=== PATIENT | male | born 1950 | race Caucasian/White ===

== ENCOUNTER 2024-02-13 14:32 | Outpatient (AMB) | payer MEDICARE, SELFPAY ==
--- NOTE | 2024-02-13 14:37 | HO.NEPHOV_ITS ---
Vital Signs 02/13/24 14:42 Height 5 ft 8 in Weight 213 lb 8 oz BMI 32.5 BP 104/70 Blood Pressure Location Rt brachial Position Sitting Pulse 92 Pulse Source Pulse Oximeter Pulse Oximetry (%) 97 Oxygen Delivery Method Room Air Intake Visit Reasons: Continuing care- CKD CON pt has labs Director Radiation Oncology Required: No Accompanied by: Self / Same As Patient Allergies No Known Allergies Allergy (Verified 02/13/24 14:44) Medication List - Last Reconciled 02/13/24 by Amari Sargent MD amlodipine 5 mg PO DAILY ascorbic acid (vitamin C) 1 g PO DAILY aspirin (Adult Low Dose Aspirin) 81 mg PO DAILY atorvastatin 10 mg PO DAILY cholecalciferol (vitamin D3) 25 mcg PO DAILY escitalopram oxalate 10 mg PO DAILY lansoprazole 30 mg PO DAILY PRN losartan 50 mg PO DAILY metoprolol succinate ER 50 mg PO DAILY multivitamin 1 tab PO DAILY rosuvastatin 5 mg PO DAILY vitamin B complex 1 tab PO DAILY HPI Comments Details: Aneudy is a pleasant 68-year-old man with a history of longstanding hypertension and CKD. He is here for annual follow-up. No new complaints today. FORMERLY [facility], 1928–1983 Surgical History (Updated 02/13/24 @ 14:42 by Blanca Richards MA) Hx of cholecystectomy Family History Mother Hypertension Kidney disease Social History (Updated 02/13/24 @ 14:42 by Blanca Richards MA) Alcohol intake: current Patient Tobacco Use Status: Former Tobacco user Physical Exam Vital Signs: Last Vital Signs Pulse 92 02/13/24 14:42 BP 104/70 02/13/24 14:42 Pulse Ox 97 02/13/24 14:42 Oxygen Delivery Method Room Air 02/13/24 14:42 BMI result Body Mass Index 32.5 Const General: comfortable; No acute distress Orientation/consciousness: patient oriented x3 Eyes General: appearance normal, both eyes and all related structures Visual Minaya: normal visual minaya by confrontation Neck Neck: Yes supple and Yes no JVD Resp Effort & Inspection: normal respiratory effort and respiratory effort not decreased Auscultation: rhonchi Cardio Palpation: no palpable S3 and no palpable S4 Heart sounds: no rubs GI Inspection: Yes normal to inspection Palpation (GI): Soft to palpation Percussion: Yes normal to percussion Auscultation: normal bowel sounds General: Yes no CVA tenderness Back/Spine/Pelvis Back: no CVA tenderness Skin General skin exam: no petechiae and no purpura Neuro General: patient oriented x3 and no focal motor deficits Extrem General: No clubbing and No edema Results Reviewed Results Reviewed: 09/05/2023 creatinine 1.26 01/05/2024 creatinine 1.39. Nephrology Results: No Data to Display Assessment & Plan Assessment & Plan (1) HTN (hypertension): Code(s): I10 - Essential (primary) hypertension Category: Medical Plan 73-year-old man with CKD 3 in the setting of hypertension. There has been a mild bump in serum creatinine most likely due to hypoperfusion. Blood pressure is relatively low. I will reduce losartan from 50 mg down to 25 mg a day. Recheck renal panel prior to next visit. Continue to maintain blood pressure less than 130/80 and avoid hypotension. All his questions were answered Orders: Orders Basic Metabolic Panel Today I10 - Essential (primary) hypertension Medications: New losartan 25 mg PO DAILY 90 tabs 1RF Coding Level of Care Code Est Pt Level 3 (94665) Diagnoses HTN (hypertension) I10
[2024-02-13 14:42] VITALS: BP 104/70; PULSE 92; O2SAT 97; BMI 32.5
== END 2024-02-13 15:03 | disposition home or self-care (01) ==
PROVIDERS: Visit Provider Internal Medicine Hypertension Specialist
DX: I10 Essential (primary) hypertension (principal)
CPT/HCPCS: 99213

== ENCOUNTER → 2024-02-13 14:32 | Outpatient (BNVA) | payer MEDICARE, SELFPAY | PROVIDERS: Visit Provider Internal Medicine Hypertension Specialist | DX: I12.9 Hypertensive chronic kidney disease with stage 1 through stage 4 chronic kidney disease, or unspecified chronic kidney disease (principal); N18.9 Chronic kidney disease, unspecified | CPT/HCPCS: 99212 ==

== ENCOUNTER 2024-07-16 14:24 | Outpatient (AMB) | payer MEDICARE, SELFPAY ==
--- NOTE | 2024-07-16 14:26 | HO.NEPHOV_ITS ---
Vital Signs 07/16/24 14:27 Height 5 ft 8 in Weight 212 lb BMI 32.2 BP 114/74 Blood Pressure Location Rt brachial Position Sitting Pulse 86 Pulse Source Pulse Oximeter Pulse Oximetry (%) 97 Oxygen Delivery Method Room Air Intake Visit Reasons: Yeyo follow up/ Conf Customer Operations Associate Required: No Accompanied by: Self / Same As Patient Allergies No Known Allergies Allergy (Verified 07/16/24 14:29) Medication List - Last Reconciled 07/16/24 by Amari Sargent MD amlodipine 5 mg PO DAILY ascorbic acid (vitamin C) 1 g PO DAILY aspirin (Adult Low Dose Aspirin) 81 mg PO DAILY atorvastatin 10 mg PO DAILY cholecalciferol (vitamin D3) 25 mcg PO DAILY escitalopram oxalate 20 mg PO DAILY lansoprazole 30 mg PO DAILY PRN losartan 25 mg PO DAILY metoprolol succinate ER 50 mg PO DAILY multivitamin 1 tab PO DAILY rosuvastatin 5 mg PO DAILY vitamin B complex 1 tab PO DAILY HPI Comments Details: Aneudy is a pleasant 68-year-old man with a history of longstanding hypertension and CKD. He is here for annual follow-up. No new complaints today. After lowering losartan, no further lightheadedness He has stopped drinking alcohol 2 weeks ago Used to drink 1-2 bottles of wine a day PFSH Surgical History Hx of cholecystectomy Family History Mother Hypertension Kidney disease Social History Alcohol intake: current Patient Tobacco Use Status: Former Tobacco user Physical Exam Vital Signs: Last Vital Signs Pulse 86 07/16/24 14:27 BP 114/74 07/16/24 14:27 Pulse Ox 97 07/16/24 14:27 Oxygen Delivery Method Room Air 07/16/24 14:27 BMI result Body Mass Index 32.2 Comfortable Neck supple no JVD. Lungs entry equal no rales. Heart S1-S2 heard no gallop or rub. Abdomen soft nontender. Neuro alert awake oriented. No asterixis. Extremities no edema. Results Reviewed Nephrology Results: No Data to Display Assessment & Plan Assessment & Plan (1) HTN (hypertension): Code(s): I10 - Essential (primary) hypertension Category: Medical (2) CKD (chronic kidney disease): Code(s): N18.9 - Chronic kidney disease, unspecified Category: Medical Plan 74-year-old man with CKD 3 in the setting of hypertension. BP is better controlled Cr is stable Continue to maintain blood pressure less than 130/80 and avoid hypotension. Orders: Orders UA and rflx microscopic 4 Months I10 - Essential (primary) hypertension, N18.9 - Chronic kidney disease, unspecified Creatinine Urine 4 Months I10 - Essential (primary) hypertension, N18.9 - Chronic kidney disease, unspecified Basic Metabolic Panel 4 Months I10 - Essential (primary) hypertension, N18.9 - Chronic kidney disease, unspecified Total Protein Urine Random 4 Months I10 - Essential (primary) hypertension, N18.9 - Chronic kidney disease, unspecified Coding Level of Care Code Est Pt Level 4 (33346) Diagnoses HTN (hypertension) I10 CKD (chronic kidney disease) N18.9
[2024-07-16 14:27] VITALS: BP 114/74; PULSE 86; O2SAT 97; BMI 32.2
--- OUTSIDE RECORDS SUMMARY | 2024-07-16 16:35 | XMS_ITS | Clinical Summary ---
Author Organization [address] Address [address] [place] [address] Care Team Providers Care Label Tacker Name Role Phone Jr Joaquin Gallo DO Primary Care Provider [phone] Allergies No known active allergies Medications amLODIPine (NORVASC) 10 MG tablet Take 5 mg by mouth daily. 5 7 Active losartan (COZAAR) 25 MG tablet 25 mg daily.. 4 7 Active aspirin 81 MG EC tablet Take 81 mg by mouth daily.. Active multivitamin (THERAGRAN) tablet Take 1 tablet by mouth daily. Active escitalopram oxalate (LEXAPRO) 20 mg tablet TAKE 1 TABLET BY MOUTH EVERY DAY 0 Active magnesium oxide,aspartate ,citr 400 mg magnesium Cap Take 400 mg by mouth daily. Active zinc gluconate 50 mg tablet Take 50 mg by mouth daily. Active ascorbic acid, vitamin C, (VITAMIN C) 1000 mg tablet Take 1,000 mg by mouth daily. Active TURMERIC ORAL Take by mouth daily. Active cholecalciferol , vitamin D3, 25 mcg (1,000 unit) tablet Take 1,000 Units by mouth daily. Active vitamin E 400 UNIT capsule Take 400 Units by mouth daily. Active b complex vitamins capsule Take 1 capsule by mouth daily. Active cranberry 500 mg Cap Take by mouth. Activ e POTASSIUM CHLORIDE ORAL Take by mouth. A ctive metoprolol succinate XL (TOPROL-XL) 25 mg 24 hr tablet Take 25 mg by mouth daily. Take with or immediately following a meal. Active Active Problems Problem Noted Date Diagnosed Date Hypertensive urgency 07/10/2020 Alcohol dependence 07/10/2020 Hyperkalemia 07/10/2020 Transient amnesia 07/09/2020 Essential hypertension 10/31/2016 GINNA on CPAP 10/31/2016 Resolved Problems Problem Noted Date Diagnosed Date Resolved Date Abnormal findings on diagnos tic imaging of lung 10/31/2016 07/10/2020 Family History Medical History Relation Name Comments Kidney disease Mother Relation Name Status Comments Mother Social History Tobacco Use Types Packs/Day Years Used Date Smoking Tobacco: Former Cigarettes 2 3 Smokeless Tobacco: Never Tobacco Cessation:Counseling Given: Yes Comments:smoked in his teens Alcohol Use Standard Drinks/Week Comments Yes 21 (1 standard drink = 0.6 oz pu re alcohol) Sex and Gender Information Value Date Recorded Sex Assigned at Not on file Legal Sex Male 6:56 PM EST Gender Identity Not on file Sexual Orientation Not on file Last Filed Vital Signs Vital Sign Reading Time Taken Comments Blood Pressure 147/86 07/26/2020 9:04 AM EST Pulse 76 07/26/2020 9:04 AM EST Temperature 36.4 ??C (97.6 ??F) 07/26/2020 9:04 AM ES T Respiratory Rate 18 07/26/2020 9:04 AM EST Oxygen Saturation 98% 07/26/2020 9:04 AM EST Inhaled Oxygen Concentration - - Weight 93 kg (205 lb) 07/26/2020 9:04 AM EST Height 172.7 cm (5' 8 ) 07/26/2020 9:04 AM EST Body Mass Index 31.17 07/26/2020 9:04 AM EST Plan of Treatment Health Maintenance Due Date Last Done Comments HIV screening 1961 Hepatitis C screening 1966 Tetanus adult (Td q 10,TDAP once) 1968 Shingles vaccine (Shingrix) (1 of 2 - Shingrix (RZV) 2 Dose Standard Series) 1998 RSV Discussion (1 - 1-dose 7 5+ series) 2023 Diabetes screening 07/10/2023 07/10/2020, 07/10/2020, 07/09/2020 Influenza vaccine 01/17/2024 04/18/2019, 03/26/2018, 04/09/2017 Covid-19 vaccine series ( - season) 2024 Lipid disorder screening 07/10/2025 021, 07/10/2020 Pneumo Vaccine 65+ Completed 05/13/2018, 05/09/2017 Meningococcal Vaccine Aged Out No amalia niall eligible based on patient's age to complete this topic Procedures Procedure Name Priority Date/Time Associated Diagnosis Comments HEMOGLOBIN A1C Routine 07/10/2020 5:58 AM EST LIPID PANEL Routine 07/10/2020 5:58 AM EST from Last 3 Months or Most Recently Relevant to Health Maintenance Results * Hemoglobin A1c (07/10/2020 5:58 AM EST) Hemoglobin A1c 5.2 4.0 - 5.6 % 07/10/2020 11:27 AM EST [facility] Comment: Hemoglobin A1c values of 5.7-6.4 % identify individuals with an increased risk for future diabetes and to whom the term pre-diabetes may be applied. ??Hemoglobin A1c values greater than 6.4% on more than one occasion are diagnostic of diabetes. Lowering HbA1c to below 7% is considered to reduce microvascular and neuropathic complications of diabetes. This boronate affinity Hb A1c method provides accurate analytical results in the presence of nearly all Hb variants. Hb F higher than 10% of total Hb may yield falsely low results. Conditions that shorten red cell survival, such as the presence of unstable hemoglobins like Hb SS, Hb CC, and Hb SC, or other causes of hemolytic anemia may yield falsely low results. Iron deficiency anemia may yield falsely high results. Estimated Average Glucose mg/dL 103 mg/dL 07/10/2020 11:27 AM EST [facility] Comment: Estimated average glucose (eAG) is a calculated value designed to estimate ??the expected average blood glucose level throughout the day from a single ??measurement of ??glycated hemoglobin A1C (HbA1c) and follows the calculation proposed by the [place] [employer] (Diabetes Care 31: 1-6, 2008). It may have less accuracy in children, women and patients with certain erythrocyte disorders. Blood Venipuncture / Unknown 07/10/2020 5:58 AM EST 07/10/2020 6:07 AM EST Malini Brewster MD LAB BLOOD ORDERABLES Final Result Performing Organization Address [facility]/State/ZIP Co de Phone Number [facility] [address] [place] [address], [facility] [phone] * Lipid panel (07/10/2020 5:58 AM EST) [facility] Signature Cholesterol 184 See Comment mg/dL 07/10/2020 7:28 AM EST [facility] Comment: Total Cholesterol (mg/dL) ?Adults (>18 years) ? Children (<18 years) Desirable ?<200 ? <170 Borderline-High ?200-239 ?170-199 High ? >=240 ?>=200 ? HDL 77 >=40 mg/dL 07/10/2020 7:28 AM EST [facility] Triglycerides 90 See Comment mg/dL 07/10/2020 7:28 AM EST [facility] Comment: Triglycerides (mg/dL) ?Adults (>18 years) ? Children (<18 years) Desirable ?<150 ? Not Established Borderline-High ?150-199 ?Not Established High ? 200-499 ?Not Established ?? Chol/HDL Ratio 2.4 0.0 - 5.0 07/10/2020 7:28 AM [facility] LDL Calculated 89 See Comment mg/dL 07/10/2020 7:28 [facility] Comment: LDL Cholesterol (mg/dL) ?Adults (>18 years) ? Children (<18 years) Desirable ?<100 ? <110 Above Desirable ?100-129 ?Not Established Borderline-High ?130-159 ?110- 129 High ? 160-189 ?>=130 Very High? >=190 ? Not Established Blood Venipuncture / Unknown 07/10/2020 5:58 AM EST 07/10/2020 6:07 AM EST Malini Brewster MD LAB BLOOD ORDERABLES Final Result Performing Organization Address City/State/[facility] Co de Phone Number [facility] [address] [place] [address], [facility] [phone] from Last 3 Months or Most Recently Relevant to Health Maintenance Insurance MEDICARE [facility] MGD [facility]GD Advance Directives * Full ACLS (Latest Code Status on File) Date Activated Date Inactivated Comments 07/10/2020 3:08 AM 07/10/2020 8:45 PM Care Teams Label Tacker Relationship Specialty Start Date End Date Jr Joaquin Gallo DO [address] [phone] PCP - General Internal Medicine 03/02/17
--- OUTSIDE RECORDS SUMMARY | 2024-07-16 16:35 | XMS_ITS | Encounter Summary ---
Author Organization [facility] Address [address] [address] Phone Care Team Providers Care Concrete Block Plant Supervisor Name Role Phone Jr Joaquin Gallo DO Primary Care Provider [phone] Reason for Referral * Imaging (Routine) - Closed Specialty Diagnoses / Procedures Referred By Contac t Referred To Contact Diagnostic Radiology Procedures CT Chest wo IV Contrast Dani Parnell MD Phone: tel: fax: Referral ID Status Reason Start Date Expiration Date Visits Re quested Visits Authorized [id number] Closed 03/15/2018 03/15/2019 1 1 Encounter Details Date Type Department Care Team (Late st Contact Info) Description 03/15/[address] Dani Parnell [address] [address] Dani Parnell MD [address] [place] [phone] Social History Tobacco Use Types Packs/Day Years Used Date Smoking Tobacco: Former Cigarettes Smokeless Tobacco: Never Alcohol Use Standard Drinks/Week Comments Yes 2 (1 standard drink = 0.6 oz pur e alcohol) nightly Sex and Gender Information Value Date Recorded Sex Assigned at Not on file Legal Sex Male 6:56 PM EST Gender Identity Not on file Sexual Orientation Not on file documented as of this encounter Plan of Treatment Not on file documented as of this encounter Procedures Procedure Name Priority Date/Time Associated Diagnosis Comments CT CHEST WO IV CONTRAST Routine 03/15/2018 documented in this encounter Results * CT Chest wo IV Contrast (03/15/2018) Anatomical Region Laterality Modality Chest Computed Tomogra phy Dani Parnell MD IMG CT ORDERABLES Final Result documented in this encounter Visit Diagnoses Not on filedocumented in this encounter Additional Health Concerns Infection Onset Date Last Indicated Resolved Time R/O COVID-19 07/09/2020 07/09/2020 07/10/2020 1:02 AM EST documented as of this encounter Care Teams Concrete Block Plant Supervisor Relationship Specialty Start Date End Date Jr Joaquin Gallo DO [address] [place] [address] [phone] PCP - General Internal Medicine 03/02/17 documented as of this encounter
--- OUTSIDE RECORDS SUMMARY | 2024-07-16 16:35 | XMS_ITS | Clinical Summary ---
Author Organization [facility] Address [address] [place] [address] Care Team Providers Care Public Speaking Instructor Name Role Phone Joaquin Gallo Primary Care Provider Allergies No known active allergies Medications Medication Sig Dispensed Refills Start Date End Date Status amLODIPine (NORVASC) 5 MG tablet Take 1 tablet (5 mg total) by mouth daily. Active escitalopram (LEXAPRO) 20 MG tablet Take 1 tablet (20 mg total) by mouth daily. Active losartan (COZAAR) 50 MG tablet Take 1 tablet (50 mg total) by mouth daily. Active atorvastatin (LIPITOR) 10 MG tablet Take 1 tablet (10 mg total) by mouth daily. Active metoPROLOL TARTRATE (LOPRESSOR) 50 MG tablet Take 1 tablet (50 mg total) by mouth 2 (two) times a day. Active Encounters Date Type Department Care Team Description 05/14/[address] [phone] Jennifer West, PT PT Discharge from Last 3 Months Social History Tobacco Use Types Packs/Day Years Used Date Smoking Tobacco: Never Assessed Sex and Gender Information Value Date Recorded Sex Assigned at Not on file Gender Identity Not on file Sexual Orientation Not on file Plan of Treatment Health Maintenance Due Date Last Done Comments Hepatitis C Virus Screening 1950 DTaP/Tdap/Td Vaccines (1 - Tdap) 1967 Pneumococcal Vaccines 50+ (1 of 1 - PCV) 1998 Zoster (Shingles) Vaccine (1 of 2) 1998 RSV Vaccine 60 years and older and Patients (1 - 1-dose 75+ series) 2023 Influenza Vaccine 01/17/2024 04/18/2019, 03/26/2018, 04/09/2017 COVID-19 Vaccine ( - 2023-2 5 season) 2024 Hepatitis B Vaccines Aged Out No long er eligible based on patient's age to complete this topic Care Teams Public Speaking Instructor Relationship Specialty Start Date End Date Joaquin Gallo DO [address] [place], [place] [id number] PCP - General Internal Medicine 01/14/24
--- OUTSIDE RECORDS SUMMARY | 2024-07-16 16:35 | XMS_ITS | Encounter Summary ---
Author Organization [facility] Address [address] [place] [address] Care Team Providers Care Artificial Breeding Ranch Supervisor Name Role Phone Cleo Joaquin DO Primary Care Provider Giovani Su PA-C Unavailable Unavai lababraham Encounter Details Date Type Department Care Team (Late st Contact Info) Description 11/09/2022 Procedure Pass [facility] Radiology, [facility] (CT Scan) [address] [place] [id number] Social History Tobacco Use Types Packs/Day Years Used Date Smoking Tobacco: Former Cigarettes Smokeless Tobacco: Never Alcohol Use Standard Drinks/Week Comments Yes 0 (1 standard drink = 0.6 oz pur e alcohol) Hunger Vital Sign Answer Date Recorded Within the past 12 months, y ou worried that your food would run out before you got the money to buy more. Never true 07/31/19 23 Within the past 12 months, t he food you bought just didn't last and you didn't have money to get more. Never true 07/31/2022 PRAPARE - Transportation Answer Date Re corded In the past 12 months, has l ack of transportation kept you from medical appointments or from getting medications? No 07/19 In the past 12 months, has l ack of transportation kept you from meetings, work, or from getting things needed for daily living? No 07/31/2022 Housing Stability Vital Sign Answer Ronald e Recorded In the last 12 months, was t here a time when you were not able to pay the mortgage or rent on time? No 07/31/2022 In the last 12 months, how many places have you lived? 1 07/31/2022 In the last 12 months, was t here a time when you did not have a steady place to sleep or slept in a snf (including now)? No 07/31/2022 Sex and Gender Information Value Date Recorded Sex Assigned at Not on file Legal Sex Male 3:23 AM EST Gender Identity Not on file Sexual Orientation Not on file COVID-19 Exposure Response Date Recorded In the last 10 days, have yo u been in contact with someone who was confirmed or suspected to have Coronavirus/COVID-19? No / Unsure 11/09/2022 6:17 PM EDT documented as of this encounter Plan of Treatment Not on file documented as of this encounter Visit Diagnoses Not on filedocumented in this encounter Care Teams Artificial Breeding Ranch Supervisor Relationship Specialty Start Date End Date Joaquin Gallo DO [address] [place] [address] PCP - General Internal Medicine 07/30/22 Giovani Su PA-C [address] [place] [address] Physician Plant Supervisor General Surgery 08/08/22 documented as of this encounter
--- OUTSIDE RECORDS SUMMARY | 2024-07-16 16:35 | XMS_ITS | Encounter Summary ---
Author Organization [facility] Address [address] [place] [phone] Care Team Providers Care Clinical Resource Director Name Role Phone Jr Joaquin Gallo DO Primary Care Provider [phone] Encounter Details Date Type Department Care Team (Late st Contact Info) Description 08/03/[address] [facility] [address] [place], [place] [phone] Siomara Guy, BLOCK SAW OPERATOR [address] [facility] [address] [place] [address] Social History Tobacco Use Types Packs/Day Years Used Date Smoking Tobacco: Former Cigarettes 2 3 Smokeless Tobacco: Never Comments:smoked in his teens Alcohol Use Standard [...] on filedocumented in this encounter Care Teams Clinical Resource Director Relationship Specialty Start Date End Date Jr Joaquin Gallo DO [address] [facility] [address] [place] [address] PCP - General Internal Medicine 03/02/17 documented as of this encounter
--- OUTSIDE RECORDS SUMMARY | 2024-07-16 16:35 | XMS_ITS | Encounter Summary ---
Author Organization [facility] Address [address] [place] [address] Care Team Providers Care Director Of Financial Planning Name Role Phone Cleo Joaquin DO Primary Care Provider Giovani Su PA-C Unavailable Unavai lababraham Encounter Details Date Type Department Care Team (Late st Contact Info) Description 11/09/2022 Procedure Pass [facility] Radiology, [facility] (CT Scan) [address] [place] [phone] Social History Tobacco Use Types Packs/Day Years [...] place to sleep or slept in a retirement (including now)? No 07/31/2022 Sex and Gender [...] on filedocumented in this encounter Care Teams Director Of Financial Planning Relationship Specialty Start Date End Date Joaquin Gallo DO [address] [place] [address] PCP - General Internal Medicine 07/30/22 Giovani Su PA-C [address] [place] [address] Physician Software Technician General Surgery 08/08/22 documented as of this encounter
--- OUTSIDE RECORDS SUMMARY | 2024-07-16 16:35 | XMS_ITS ---
Author Organization [employer] Address [address] [place] [address] Care Team Providers Care Lay Out Drafter Name Role Phone ANA NELSON JR Primary Care Provider [phone] Dwight Kenny Unavailable Unavailable REASON FOR VISIT CCM 1 Encounters Encounter Location Date Provider Diagnosis [facility] [address] [place] [address] 04/30/2024 ANA NELSON Plan Of Treatment Next Appt Details Provider Name:ANA NELSON, 07/29/2024 12:00:00 PM, [address], [address], [place], [address], Provider Name:ANA NELSON, 01/27/2025 12:00:00 PM, [address], [address], [place], [address], Progress Notes * Aneudy VILLALPANDODOB:1950 (74 yo M)Acc No.[id number]:04/30/2024 Patient:?Aneudy VILLALPANDO :1950???Age:74 Y???Sex:Male Address:[address] [place] [address], [address] * true * Date:? Generated for Printi ng/Fadeepthig/eTransmitting on:?07/16/2024 04:35 PM EST
--- OUTSIDE RECORDS SUMMARY | 2024-07-16 16:35 | XMS_ITS | Encounter Summary ---
Author Organization [facility] Address [address] [place] [address] Care Team Providers Care Valve Tester Name Role Phone Jr Joaquin Gallo DO Primary Care Provider [phone] Encounter Details Date Type Department Care Team (Late st Contact Info) Description 05/02/[address] [facility] [address] [place], [place] [address] Siomara Guy, PRINCIPAL ENGINEER [address] [facility] [address] [place] [address] Social History Tobacco Use Types [...] on filedocumented in this encounter Care Teams Valve Tester Relationship Specialty Start Date End Date Jr Joaquin Gallo DO [address] [facility] [address] [place] [address] PCP - General Internal Medicine 03/02/17 documented as of this encounter
--- OUTSIDE RECORDS SUMMARY | 2024-07-16 16:35 | XMS_ITS ---
Author Name [facility] Organization Unknown History of Medication Use Medication Directions Dispensed Refills Start Date End Date Stat us Mobic 7.5 mg oral tablet take 1 tablet (7.5 mg) by oral route once daily for 10 days 10/06/2016 10/16/2016 completed atorvastatin (LIPITOR) 10 MG tablet Take 1 tablet (10 mg total) by mouth daily. active prednisone 10 mg tablet take 1 tablet (10 mg) by oral route once daily 07/26/2022 completed escitalopram (LEXAPRO) 20 MG tablet Take 1 tablet (20 mg total) by mouth daily. active Problems Problem Status Onset Date Problem Type Date of Resoluti on Source Impingement syndrome of left shoulder active 2016-12-04 ProblemAct [facility] Sciatica of left side active 2016-10-12 ProblemAct [facility] Arthralgia, cervical spine active 2022-08-29 ProblemAct [facility] Pain in joint of right shoulder active 2019-03-05 ProblemAct [facility] Acute left-sided low back pain with left-sided sciatica active 2016-10-13 ProblemAct [facility] Arthritis of neck active 2022-08-04 ProblemAct [facility] HTN (hypertension) active 2022-08-29 ProblemAct [facility] Rotator cuff tendinitis, right active 2019-02-19 ProblemAct [facility] T Depression active 2022-08-29 ProblemAct [facility] Bursitis of left hip active 2016-10-12 ProblemAct [facility]
--- OUTSIDE RECORDS SUMMARY | 2024-07-16 16:36 | XMS_ITS | Clinical Summary ---
Author Organization [facility] Address [address] [place] [id number] Care Team Providers Care Cyber Policy And Strategy Planner Name Role Phone Joaquin Gallo DO Primary Care Provider Giovani Su PA-C Unavailable Unavai lable Allergies No known active allergies Medications aspirin 81 mg EC tablet Take 81 mg by mouth 1 (one) time each day. Active cholecalciferol (Vitmain D-3) 25 mcg (1,000 unit) tablet Take 1,000 Int'l Units by mouth 1 (one) time each day. Active escitalopram (Lexapro) 20 mg tablet Take 20 mg by mouth 1 (one) time each day. 07/07/2022 Active lansoprazole (PREVACID) [address] capsule Take 30 mg by mouth 1 (one) time each day. Active losartan (Cozaar) 50 mg tablet Take 50 mg by mouth 1 (one) time each day. 07/27/2022 Active magnesium oxide,aspartate ,citr (Triple Magnesium Complex) 400 mg magnesium capsule Take 400 mg by mouth if needed. Active metoprolol succinate (Toprol-Xl) 25 mg 24 hr tablet Take 25 mg by mouth 1 (one) time each day. Active multivitamin-ir on-minerals (THERAPEUTIC) tablet Take 1 tablet by mouth 1 (one) time each day. Active rosuvastatin (CRESTOR) 5 mg tablet Take 5 mg by mouth 1 (one) time each day. Active predniSONE (Deltasone) 10 mg tablet Take 10 mg by mouth 1 (one) time each day. Active zinc gluconate 50 mg tablet Take 50 mg by mouth 1 (one) time each day. Active alpha tocopherol (VITAMIN E) 268 mg (400 unit) capsule Take 400 Units by mouth 1 (one) time each day. Active b complex vitamins capsule Take 1 capsule by mouth 1 (one) time each day. Active cranberry 500 mg capsule Take by mouth. Active ascorbic acid (VITAMIN C) 1,000 mg tablet Take 1,000 mg by mouth 1 (one) time each day. Active potassium-calci [id number] [id number] mg powder in packet Take 75 mg by mouth 2 (two) times a day. Active amLODIPine (Norvasc) 5 mg tablet Take 5 mg by mouth. 10/05/2021 Active hydroCHLOROthia zide (Hydrodiuril) 25 mg tablet Take 1 tablet (25 mg total) by mouth 1 (one) time each day. 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 Cholecystitis 07/31/2022 Adjustment disorder with mixed anxiety and depre ssed mood 08/10/2021 Anxiety disorder 08/10/2021 Aortic aneurysm 08/10/2021 Gastro-esophageal reflux disease without esophag itis 08/10/2021 Hypertensive renal disease 11/29/2020 Stage 3 chronic kidney disease 11/29/2020 Alcohol dependence 07/10/2020 Essential hypertension 10/31/2016 Obstructive sleep apnea syndrome 10/31/2016 Family History Medical History Relation Name Comments Hypertension Mother Kidney disease Mother Relation Name Status Comments Mother Social History Tobacco Use Types Packs/Day Years Used Date Smoking Tobacco: Former Cigarettes Smokeless Tobacco: Never Tobacco Cessation:Counseling Given: Not Answered Alcohol Use Standard Drinks/Week Comments Yes 0 [...] place to sleep or slept in a alf (including now)? No 07/31/2022 Sex and Gender Information Value Date Recorded Sex Assigned at Not on file Legal Sex Male 3:23 AM EST Gender Identity Not on file Sexual Orientation Not on file Last Filed Vital Signs Vital Sign Reading Time Taken Comments Blood Pressure 128/95 11/09/2022 11:00 PM EDT Pulse 86 11/09/2022 11:00 PM EDT Temperature 36.2 ??C (97.1 ??F) 08/15/2022 9:31 AM ES T Respiratory Rate 17 11/09/2022 11:00 PM EDT Oxygen Saturation 94% 11/09/2022 11:00 PM EDT Inhaled Oxygen Concentration - - Weight 95.8 kg (211 lb 3.2 oz) 11/09/2022 6:53 P M EDT Height 172.7 cm (5' 8 ) 07/31/2022 12:44 AM EST Body Mass Index 32.11 07/31/2022 12:44 AM EST Plan of Treatment Health Maintenance Due Date Last Done Comments Hepatitis C Screening 1950 Medicare Annual Wellness Visit 1966 Tdap and Td Vaccines Adult 1969 Fall Risk Screening 2013 Zoster Vaccines (2 of 3) 09/16/2019 020, 09/02/2015 RSV 60+ (1 - 1-dose 75+ series) 2023 COVID-19 Vaccine (2023-2 5 season) 2024 Influenza Vaccine (#1) 2024 9, 03/26/2018, 04/09/2017 Pneumococcal Vaccine: 50+ Years Completed 05/13/2018, 05/09/2017 Lipid Panel Discontinued 07/10/2020 Colonoscopy Discontinued 01/18/2022 Colorectal Cancer Screening Discontinued Sigmoidoscopy Discontinued 01/18/2022 CT Colonography Discontinued FIT-DNA Discontinued FIT Discontinued FOBT Discontinued HIB Vaccines Aged Out No longer eligi ble based on patient's age to complete this topic HPV Vaccines Aged Out No longer eligi ble based on patient's age to complete this topic Hepatitis A Vaccines Aged Out No long er eligible based on patient's age to complete this topic IPV Vaccines Aged Out No longer eligi ble based on patient's age to complete this topic Meningococcal Vaccine Aged Out No amalia inall eligible based on patient's age to complete this topic RSV <20 Months Aged Out No longer ramiro gible based on patient's age to complete this topic Insurance [employer] Advance Directives * Full Code (Latest Code Status on File) Date Activated Date Inactivated Comments 07/31/2022 3:44 AM 08/04/2022 1:51 PM Care Teams Cyber Policy And Strategy Planner Relationship Specialty Start Date End Date Joaquin Gallo DO [address] [place] [address] PCP - General Internal Medicine 07/30/22 Giovani Su PA-C [address] [place] [address] Physician Granulating Machine Operator General Surgery 08/08/22
--- OUTSIDE RECORDS SUMMARY | 2024-07-16 16:36 | XMS_ITS ---
Author Organization [email or web address] Address [address] [place] [address] Care Team Providers Care Case Management Director Name Role Phone ANA NELSON JR Primary Care Provider [phone] Dwight Kenny Unavailable Unavailable REASON FOR VISIT CCM 3 Encounters Encounter Location Date Provider Diagnosis [email or web address] [address] [place] [address] 04/16/2024 ANA NELSON Plan Of Treatment Next Appt Details Provider Name:ANA NELSON, 07/29/2024 12:00:00 PM, [address], [address], [place], [address], Provider Name:ANA NELSON, 01/27/2025 12:00:00 PM, [address], [address], [place], [address], Progress Notes * Aneudy VILLALPANDODOB:1950 (74 yo M)Acc No.[id number]:04/16/2024 Patient:?Aneudy VILLALPANDO :1950???Age:74 Y???Sex:Male Address:[address] [place] [address], [address] * true * Date:? Generated for Printi ng/Fadeepthig/eTransmitting on:?07/16/2024 04:36 PM EST
--- OUTSIDE RECORDS SUMMARY | 2024-07-16 16:36 | XMS_ITS | Encounter Summary ---
Author Organization [facility] Address [address] [place] [address] Care Team Providers Care Patternmaker Sample Name Role Phone Cleo Joaquin DO Primary Care Provider Giovani Su PA-C Unavailable Unavai lababraham Encounter Details Date Type Department Care Team (Late st Contact Info) Description 07/30/2022 Procedure Pass [facility] Radiology, [facility] (CT Scan) [address] [place] [id number] Social History Tobacco Use Types Packs/Day Years Used Date Smoking Tobacco: Former Cigarettes Smokeless Tobacco: Never Hunger Vital Sign Answer Date Recorded Within [...] place to sleep or slept in a fci (including now)? No 07/31/2022 Sex and Gender Information Value Date Recorded Sex Assigned at Not on file Legal Sex Male 3:23 AM EST Gender Identity Not on file Sexual Orientation Not on file COVID-19 Exposure Response Date Recorded In the last 10 days, have yo u been in contact with someone who was confirmed or suspected to have Coronavirus/COVID-19? No / Unsure 07/31/2022 12:46 AM EST documented as of this encounter Plan of Treatment Not on file documented as of this encounter Visit Diagnoses Not on filedocumented in this encounter Additional Health Concerns Infection Onset Date Last Indicated Resolved Time Coronavirus Comment:Added from external infection. 12/12/2021 07/31/2022 8:[address] COVID-19 (rule out) 07/31/2022 07/31/2022 07/31/19 4:23 AM EST Flu (rule out) 07/31/2022 07/31/2022 07/31/2022 4: 49 AM EST documented as of this encounter Care Teams Patternmaker Sample Relationship Specialty Start Date End Date Joaquin Gallo DO [address] [place] [address] PCP - General Internal Medicine 07/30/22 Giovani Su PA-C [address] [place] [address] Physician Cartographic Technician General Surgery 08/08/22 documented as of this encounter
--- OUTSIDE RECORDS SUMMARY | 2024-07-16 16:36 | XMS_ITS | Encounter Summary ---
Author Organization [facility] Address [address] [address] Phone Care Team Providers Care Dining Room Manager Name Role Phone Jr Joaquin Gallo DO Primary Care Provider [phone] Encounter Details Date Type Department Care Team (Late st Contact Info) Description 03/02/[address] Dani Parnell [place] [address] [address] External, Provider Social History Tobacco Use Types Packs/Day Years [...] Name Priority Date/Time Associated Diagnosis Comments CT RESULT SCAN Routine 02/27/2017 documented in this encounter Results * CT Result Scan (02/27/2017) us Dani Parnell MD IMG SCAN REPORTS Final R esult documented in this encounter Visit Diagnoses Not on filedocumented in this encounter Additional Health Concerns Infection Onset Date Last Indicated Resolved Time R/O COVID-19 07/09/2020 07/09/2020 07/10/2020 1:02 AM EST documented as of this encounter Care Teams Dining Room Manager Relationship Specialty Start Date End Date Jr Joaquin Gallo DO [address] [place] [address] [place] [address] PCP - General Internal Medicine 03/02/17 documented as of this encounter
--- OUTSIDE RECORDS SUMMARY | 2024-07-16 16:36 | XMS_ITS | Encounter Summary ---
Author Organization [facility], Address [address] [place] [address], [facility] [address] [place] [address] Phone Care Team Providers Care Associate Professor Of Archaeology Name Role Phone Jr Joaquin Gallo DO Primary Care Provider [phone] Encounter Details Date Type Department Care Team (Late st Contact Info) Description 11/26/2017 Abstract [facility] [address] [place] [address] [address] [place] [address] [place] [address] [place] [address] [address] [place] [address] Social History Tobacco Use Types Packs/Day Years [...] documented as of this encounter Care Teams Associate Professor Of Archaeology Relationship Specialty Start Date End Date Jr Joaquin Gallo DO [address] [facility] [address] [place] [address] PCP - General Internal Medicine 03/02/17 documented as of this encounter
--- OUTSIDE RECORDS SUMMARY | 2024-07-16 16:36 | XMS_ITS | Encounter Summary ---
Author Organization [facility], Address [address] [place] [address], [address] [place] [address] Phone Care Team Providers Care Food Preparation Worker Name Role Phone Jr Joaquin Gallo DO Primary Care Provider [phone] Encounter Details Date Type Department Care Team (Late st Contact Info) Description 11/28/2017 Abstract [facility] [address] [place] [address] [address] [place] [address] [place] [address] [place] [address] [address] [place] [address] Social History Tobacco Use Types [...] documented as of this encounter Care Teams Food Preparation Worker Relationship Specialty Start Date End Date Jr Joaquin Gallo DO [address] [facility] [address] [place] [address] PCP - General Internal Medicine 03/02/17 documented as of this encounter
--- OUTSIDE RECORDS SUMMARY | 2024-07-16 16:36 | XMS_ITS | Encounter Summary ---
Author Organization [facility] Address [address] [facility] [address] [place] [address] Phone Care Team Providers Care Shipping Hand Name Role Phone Unavailable Primary Care Provider Unavailabl e Encounter Details Date Type Department Care Team (Late st Contact Info) Description 07/12/2024 Orders Only [facility]. [address] [facility] [address] [place] [address] Amari Sargent MD Social History Tobacco Use Types Packs/Day Years Used Date Smoking Tobacco: Never Alcohol Use Standard Drinks/Week Comments No 0 (1 standard drink = 0.6 oz pur e alcohol) Sex and Gender Information Value Date Recorded Sex Assigned at Not on file Legal Sex Male 5:08 PM EST Gender Identity Not on file Sexual Orientation Not on file documented as of this encounter Plan of Treatment Not on file documented as of this encounter Procedures Procedure Name Priority Date/Time Associated Diagnosis Comments BASIC METABOLIC PANEL Routine 07/12/2024 10:17 AM EST documented in this encounter Results * (ABNORMAL) Basic Metabolic Panel (07/12/2024 10:17 AM EST) Glucose 100(H) 65 - 99 mg/dL See order comments Comment: ? Fasting reference interval For someone without known diabetes, a glucose value between 100 and 125 mg/dL is consistent with prediabetes and should be confirmed with a follow-up test. BUN 21 7 - 25 mg/dL See order comments Creatinine 1.44(H) 0.70 - 1.28 mg/dL See order comments eGFR CKD-EPI CR 2020 50(L) > OR = 60 mL/min/1.7 3m2 See order comments BUN/Creatinine Ratio 15 6 - 22 (calc) See order comments Sodium 138 135 - 146 mmol/L See order comments Potassium 4.6 3.5 - 5.3 mmol/L See order comments Chloride 102 98 - 110 mmol/L See order comments Bicarbonate (CO2) 25 20 - 32 mmol/L See order comments Calcium 10.4(H) 8.6 - 10.3 mg/dL See order comments 07/12/2024 10:1 7 AM EST 07/12/2024 10:17 AM EST Narrative [facility] - 07/13/2024 4:19 AM EST FASTING:YES FASTING: YES Resulting Agency Comment Performing Organization Information: ?Site ID: [id number] ?Name: [email or web address] ?Address: [address] [place] [address] ?Director: Abram Artis us Amari Sargent MD LAB BLOOD ORDERABLES Final Res ult [facility] See order comments [place] [address] documented in this encounter Visit Diagnoses Not on filedocumented in this encounter
--- OUTSIDE RECORDS SUMMARY | 2024-07-16 16:36 | XMS_ITS | Clinical Summary ---
Author Organization [facility] [place] [address] Care Team Providers Care Hair Blender Name Role Phone Joaquin Gallo DO Primary Care Provider [phone] Surgical History Surgery Date Site/Laterality Comments COLONOSCOPY 01/18/2022 N/A PROCEDURE:COLONOSCOPY;COMMENT :Procedure: COLONOSCOPY PROPOFOL; Surgeon: Donn Salmon DO; Location: [facility]; Service: Gastroenterology; Laterality: N/A; UPPER GASTROINTESTINAL ENDOSCOPY 01/18/2022 N/A PROCEDURE:UPPER GASTROINTESTINAL ENDOSCOPY;COMMENT:Procedure: UPPER ENDOSCOPY-EGD; Surgeon: Donn Salmon DO; Location: [facility]; Service: Gastroenterology; Laterality: N/A; COLONOSCOPY 08/13/2023 N/A PROCEDURE:COLONOSCOPY;COMMENT :Procedure: COLONOSCOPY propofol pediscope; Surgeon: Donn Salmon DO; Location: [facility]; Service: Gastroenterology; Laterality: N/A; Medical History Medical History Date Comments Hypertension DX:Hypertension Sleep apnea DX:Sleep apnea;C OMMENT:not using Colon polyp DX:Colon polyp Chronic diarrhea DX:Chronic diar melecio Visual impairment DX:Visual impa irment;COMMENT:glasses Aortic aneurysm (CMS/HCC) DX:Aor tic aneurysm (HCC);COMMENT:followed by cardiology [facility] Social History Tobacco Use Types Packs/Day Years Used Date Smoking Tobacco: Former Smokeless Tobacco: Never Alcohol Use Standard Drinks/Week Comments Yes 0 (1 standard drink = 0.6 oz pur e alcohol) Sex and Gender Information Value Date Recorded Sex Assigned at Not on file Gender Identity Not on file Sexual Orientation Not on file Obstetrics History Last Filed Vital Signs Vital Sign Reading Time Taken Comments Blood Pressure 140/93 01/09/2023 9:03 AM EDT Sitting Right arm Pulse 74 01/09/2023 9:03 AM EDT Temperature - - Respiratory Rate - - Oxygen Saturation - - Inhaled Oxygen Concentration - - Weight 86.2 kg (190 lb) 01/09/2023 9:03 AM EDT Height 172.7 cm (5' 8 ) 01/09/2023 9:03 AM EDT Body Mass Index 28.89 01/09/2023 9:03 AM EDT Plan of Treatment Health Maintenance Due Date Last Done Comments DTaP,Tdap,and Td Vaccines (1 - Tdap) 1969 Zoster Vaccines (1 of 2) 1998 Pneumococcal Vaccine: 65+ Ye ars (1 of 1 - PCV) 2013 Cholesterol Screening (Lipid Panel) 05/20/2022 Depression Screening 05/20/2022 Falls Risk Assessment 05/20/2022 Hepatitis C Screening 05/20/2022 Social Influencers of Health Screening 05/20/2022 RSV Immunization Patients 60 + Years Old (1 - 1-dose 75+ series) 2023 COVID-19 Vaccine ( - 2023-2 5 season) 2024 Influenza Vaccine (#1) 2024 Colorectal Cancer Screening: Colonoscopy Discontinued 01/18/2022 HIB Vaccines Aged Out No longer eligi ble based on patient's age to complete this topic HPV Vaccines Aged Out No longer eligi ble based on patient's age to complete this topic Hepatitis A Vaccines Aged Out No long er eligible based on patient's age to complete this topic Hepatitis B Vaccines Aged Out No long er eligible based on patient's age to complete this topic IPV Vaccines Aged Out No longer eligi ble based on patient's age to complete this topic MMR Vaccines Aged Out No longer eligi ble based on patient's age to complete this topic Meningococcal ACWY Vaccine Aged Out N o longer eligible based on patient's age to complete this topic RSV Immunization Patients Un shira 20 months Aged Out No longer eligible b ased on patient's age to complete this topic Varicella Vaccines Aged Out No longer eligible based on patient's age to complete this topic Care Teams Hair Blender Relationship Specialty Start Date End Date Joaquin Gallo DO [address] [facility] [address] [place] [address] PCP - General 08/10/23
--- OUTSIDE RECORDS SUMMARY | 2024-07-16 16:36 | XMS_ITS | Encounter Summary ---
Author Organization [facility] Address [address] [facility] [place] [address] Phone Care Team Providers Care Fruit Grader Operator Name Role Phone Jr Joaquin Gallo DO Primary Care Provider [phone] Encounter Details Date Type Department Care Team (Late st Contact Info) Description 10/31/[address] Dani Parnell [place] [address] [facility] [address] [place] [address] Dani Parnell MD [address] [place] [address] Social History Tobacco Use Types Packs/Day [...] documented as of this encounter Care Teams Fruit Grader Operator Relationship Specialty Start Date End Date Jr Joaquin Gallo DO [address] [phone] PCP - General Internal Medicine 03/02/17 documented as of this encounter
--- OUTSIDE RECORDS SUMMARY | 2024-07-16 16:36 | XMS_ITS | Encounter Summary ---
Author Organization [facility] Address [address] [place], [place] [address] Care Team Providers Care Nail Machine Operator Name Role Phone Cleo Joaquin DO Primary Care Provider Giovani Su PA-C Unavailable Unavai lababraham Encounter Details Date Type Department Care Team (Late st Contact Info) Description 07/31/2022 Procedure Pass [facility], Radiology (Ultrasound) [address] [place], [place] [id number] Social History Tobacco Use Types Packs/Day Years [...] place to sleep or slept in a half-way (including now)? No 07/31/2022 Sex and Gender [...] documented as of this encounter Care Teams Nail Machine Operator Relationship Specialty Start Date End Date Joaquin Gallo DO [address] [place] [address] PCP - General Internal Medicine 07/30/22 Giovani Su PA-C [address] [place] [address] Physician Drain Cleaner General Surgery 08/08/22 documented as of this encounter
--- OUTSIDE RECORDS SUMMARY | 2024-07-16 16:36 | XMS_ITS ---
Author Organization [facility] Address [address] [place] [address] Care Team Providers Care Kosher Sealer Name Role Phone ANA NELSON JR Primary Care Provider Dwight Kenny Unavailable Unavailable REASON FOR VISIT CCM 2 Encounters Encounter Location Date Provider Diagnosis [facility] [address] [place] [address] 07/03/2024 ANA NELSON Plan Of Treatment Next Appt Details Provider Name:ANA NELSON, 07/29/2024 12:00:00 PM, [address], [address], [place], [address], Provider Name:ANA NELSON, 01/27/2025 12:00:00 PM, [address], [address], [place], [address], Progress Notes * Aneudy VILLALPANDODOB:1950 (74 yo M)Acc No.[id number]:07/03/2024 Patient:?Aneudy VILLALPANDO :1950???Age:74 Y???Sex:Male Address:[address] [place] [address], [address] * true * Date:? Generated for Printi ng/Fadeepthig/eTransmitting on:?07/16/2024 04:36 PM EST
--- OUTSIDE RECORDS SUMMARY | 2024-07-16 16:36 | XMS_ITS | Encounter Summary ---
Author Organization [facility] Address [address] [address] Phone Care Team Providers Care Wood Tool Maker Name Role Phone Jr Joaquin Gallo DO Primary Care Provider [phone] Encounter Details Date Type Department Care Team (Late st Contact Info) Description 03/02/[address] Dani Parnell [place] [address] [facility] [address] [place] [address] External, Provider Social History Tobacco Use [...] documented as of this encounter Care Teams Wood Tool Maker Relationship Specialty Start Date End Date Jr Joaquin Gallo DO [address] [phone] PCP - General Internal Medicine 03/02/17 documented as of this encounter
--- OUTSIDE RECORDS SUMMARY | 2024-07-16 16:36 | XMS_ITS | Encounter Summary ---
Author Organization [facility] Address [address] [place] [address] Care Team Providers Care Pipe Stem Sawyer Name Role Phone Cleo Joaquin DO Primary Care Provider Giovani Su PA-C Unavailable Unavai lababraham Encounter Details Date Type Department Care Team (Late st Contact Info) Description 07/31/2022 Procedure Pass [facility], Main Operating Room [address] [place] [address] Social History Tobacco Use Types Packs/Day Years [...] place to sleep or slept in a care home (including now)? No 07/31/2022 Sex and Gender [...] documented as of this encounter Care Teams Pipe Stem Sawyer Relationship Specialty Start Date End Date Joaquin Gallo DO [address] [place] [address] PCP - General Internal Medicine 07/30/22 Giovani Su PA-C [address] [place] [address] Physician In House Counsel General Surgery 08/08/22 documented as of this encounter
--- OUTSIDE RECORDS SUMMARY | 2024-07-16 16:36 | XMS_ITS | Clinical Summary ---
Author Organization [facility] Address [address] [facility] [address] [place] [address] Phone Care Team Providers Care Boat Canvas Maker And Installer Name Role Phone Unavailable Primary Care Provider Unavailabl e Allergies No known active allergies Medications ZINC SULFATE PO Take by mouth 1 (one) time each day Active ALPRAZolam (XANAX) 0.25 MG tablet TAKE 1 TABLET BY MOUTH TWICE A DAY NEEDED FOR 30 DAYS 10/13/2019 Active aspirin (ST ALIREZA) 81 MG EC tablet Take 1 tablet by mouth 1 (one) time each day Active escitalopram (LEXAPRO) 10 MG tablet Take 10 mg by mouth 1 (one) time each day 10/13/2019 Active Magnesium 400 MG capsule Take 400 mg by mouth 1 (one) time each day Active multivitamin (THERAGRAN) tablet Take 1 tablet by mouth 1 (one) time each day Active rosuvastatin (CRESTOR) 5 MG tablet 10/21/2020 Active ALPRAZolam (XANAX) 0.25 MG tablet 2 (two) times a day 05/02/2021 Active clotrimazole-be tamethasone (LOTRISONE) cream 2 (two) times a day 05/22/2018 Active Metoprolol Succinate 25 MG capsule extended-releas e 24 hour sprinkle 1 capsule 10/21/2020 Active ascorbic acid (VITAMIN C) 1000 MG tablet Take 1,000 mg by mouth 1 (one) time each day Active TURMERIC PO Take by mouth 1 (one) time each day Active cholecalciferol (VITAMIN D-3) 25 MCG (1000 UT) tablet Take 1,000 Units by mouth 1 (one) time each day Active alpha tocopherol (VITAMIN E) 400 units capsule Take 400 Units by mouth 1 (one) time each day Active Sod Picosulfate-Mag Ox-Cit Acd (Clenpiq) 10-3.5-12 MG-GM -GM/160ML solution Take 1 kit by mouth 06/20/2021 Active amLODIPine (NORVASC) 5 MG tabletIndicatio ns:Hypertensive chronic kidney disease, unspecified, with chronic kidney disease stage I through stage IV, or unspecified,Sta ge 3a chronic kidney disease (HCC),Hypertens qasim renal disease Take 1 tablet (5 mg total) by mouth 1 (one) time each day 90 tablet 1 10/05/2021 Active losartan (COZAAR) 25 MG tablet TAKE 1 TABLET BY MOUTH EVERY DAY 90 tablet 2 02/17/2022 Active lansoprazole (PREVACID) [address] capsule 1 (one) time each day Active Active Problems Problem Noted Date Diagnosed Date Heartburn 12/27/2021 Overview (06/29/2022): Added automatically from request for surgery [id number] Abnormal feces 08/10/2021 Aneurysm of aorta 08/10/2021 Adjustment disorder with mixed anxiety and depre ssed mood 08/10/2021 Anxiety disorder 08/10/2021 Benign prostatic hyperplasia without outflow obs truction 08/10/2021 Diarrhea 08/10/2021 Fatigue 08/10/2021 Gastro-esophageal reflux disease without esophag itis 08/10/2021 Hyperlipidemia 08/10/2021 Impaired fasting glucose 08/10/2021 Leukocytosis 08/10/2021 Lower urinary tract symptoms due to benign prostatic hypertrophy 08/10/2021 Palpitations 08/10/2021 Vitamin D deficiency 08/10/2021 Testicular hypofunction 08/10/2021 Prostate specific antigen above reference range 08/10/2021 History of adenomatous polyp of colon 06/20/2021 Overview (08/16/2021): Added automatically from request for surgery [id number] Chronic kidney disease stage 3 11/29/2020 Hypertensive renal disease 11/29/2020 Alcohol dependence 07/10/2020 Hyperkalemia 07/10/2020 Hypertensive urgency 07/10/2020 Temporary loss of memory 07/09/2020 Acute post-traumatic headache, not intractable 0 11/12/2019 Essential hypertension 10/31/2016 Obstructive sleep apnea syndrome 10/31/2016 Encounters Date Type Department Care Team Description 07/12/2024 Orders Only [facility] [address] [place] [address] [address] [place] [address] Amari Sargent MD from Last 3 Months Immunizations Name Administration Dates Next Due Influenza, Quadrivalent, Preservative Free 04/18,03/26/2018,04/09/2017 Pneumococcal Conjugate 13-Valent 05/09/2017 Pneumococcal Polysaccharide 05/13/2018 Tetanus 07/20/2008 Zoster 07/22/2019 Family History Medical History Relation Comments Hypertension Mother Kidney disease Mother Relation Status Comments Mother Social History Tobacco Use [...] Sign Reading Time Taken Comments Blood Pressure 110/65 07/04/2022 3:24 PM EST Pulse 66 07/04/2022 3:24 PM EST Temperature - - Respiratory Rate - - Oxygen Saturation 98% 07/04/2022 3:24 PM EST Inhaled Oxygen Concentration - - Weight 88.5 kg (195 lb) 07/04/2022 3:24 PM EST Height 172.7 cm (5' 8 ) 11/19/2018 12:01 PM EDT Body Mass Index 29.65 11/19/2018 12:01 PM EDT Plan of Treatment Health Maintenance Due Date Last Done Comments Influenza Vaccine (#1) 2024 9, 03/26/2018, 04/09/2017 Pneumococcal Vaccine: 65+ Years Completed 05/13/2018, 05/13/2018, 05/09/2017, Additional history exists Colorectal Cancer Screening: Colonoscopy Discontinued 01/18/2022 Hepatitis B Vaccine Aged Out No longe r eligible based on patient's age to complete this topic Procedures Procedure Name Priority Date/Time Associated Diagnosis Comments BASIC METABOLIC PANEL Routine 07/12/2024 10:17 AM EST from Last 3 Months Results * (ABNORMAL) Basic Metabolic Panel (07/12/2024 [...] Performing Organization Information: ?Site ID: [id number] ?Name: [facility] ?Address: [address] [place] [id number] ?Director: Abram Artis us Amari Sargent MD LAB BLOOD ORDERABLES Final Res ult [facility] See order comments [place] [address] from Last 3 Months Insurance [employer] MCR ADV PPO ([id number]) [employer] MCR ADV PPO ([id number])
--- OUTSIDE RECORDS SUMMARY | 2024-07-16 16:36 | XMS_ITS | Clinical Summary ---
Author Organization [facility] Address [address] [place] [address] Care Team Providers Care Equipment Engineering Technician Name Role Phone Joaquin Gallo DO Primary Care Provider [phone] Allergies No known active allergies Medications Medication Sig Dispensed Refills Start Date End Date Status amLODIPine (NORVASC) tablet 10 mg Take 1 tablet (10 mg total) by mouth daily. 0 Active losartan (COZAAR) tablet 25 mg Take 1 tablet (25 mg total) by mouth daily. 0 Active aspirin 81 MG tablet Take 1 tablet (81 mg total) by mouth daily. 0 Active escitalopram (LEXAPRO) tablet 10 mg Take 1 tablet (10 mg total) by mouth. 0 10/13/2019 Active metoprolol succinate (TOPROL-XL) 24 hr tablet 25 mg Take 1 tablet (25 mg total) by mouth. 0 11/08/2020 Active colestipol (COLESTID) 1 g tablet Take 1 tablet (1 g total) by mouth 2 (two) times a day. 180 tablet 1 02/28/2023 Active Additional Information Patient not taking.Reason: Other, Reported on 08/10/2023 Active Problems Problem Noted Date Diagnosed Date Aneurysm 01/09/2023 Loose stools 12/25/2022 History of cholecystectomy 12/25/2022 TGA (transient global amnesia) 12/25/2022 Heartburn 12/27/2021 Overview: Added automatically from request for surgery [id number] History of adenomatous polyp of colon 06/20/2021 Overview: Added automatically from request for surgery [id number] Social History Tobacco Use Types Packs/Day Years Used Date Smoking Tobacco: Former Smokeless Tobacco: Never Tobacco Cessation:Counseling Given: Not Answered Comments:quit age 19 Alcohol Use Standard Drinks/Week Comments Yes 0 (1 standard drink = 0.6 oz pur e alcohol) 2 galsses wine daily Sex and Gender Information Value Date Recorded Sex Assigned at Male 09/07/2021 2:00 PM EDT Gender Identity Not on file Sexual Orientation Not on file Job Start Date Occupation Industry Not on file Not on file Not on file Last Filed Vital Signs Vital Sign Reading Time Taken Comments Blood Pressure 119/84 08/13/2023 12:30 PM EST Pulse 62 08/13/2023 12:30 PM EST Temperature 36.7 ??C (98 ??F) 08/10/2023 11:21 AM EST Respiratory Rate 17 08/13/2023 12:30 PM EST Oxygen Saturation 94% 08/13/2023 12:30 PM EST Inhaled Oxygen Concentration - - Weight 88.5 kg (195 lb) 08/10/2023 11:21 AM EST Height 172.7 cm (5' 8 ) 08/10/2023 11:21 AM EST Body Mass Index 29.65 08/10/2023 11:21 AM EST Plan of Treatment Health Maintenance Due Date Last Done Comments Hepatitis C Screening 1950 COVID-19 Vaccine (#1) 1950 Depression Screening 1960 Preventative Health Evaluation 1966 DTap / Tdap / Td (1 - Tdap) 1967 Shingrix-Zoster Vaccine (1 of 2) 1998 Fall Risk Assessment 2013 RSV Adult > 60+ Yrs or (1 - 1-dose 75+ series) 2023 Influenza Vaccine (#1) 2024 9, 04/18/2019, 03/26/2018, Additional history exists Pneumococcal Vaccine Completed 05/13/2018, 05/09/20 17 Hepatitis B Vaccines Aged Out No long er eligible based on patient's age to complete this topic RSV Ped < 20 months Aged Out No longe r eligible based on patient's age to complete this topic Additional Health Concerns Infection Onset Date Last Indicated COVID-19 Confirmed 12/12/2021 12/13/2021 Advance Directives For more information, please contact: [phone] Documents on File Type Date Recorded Patient Enterostomal Therapy Nurse Expl anation Advance Directive and Living Will 01/18/2022 7:13 AM Latest Code Status on File Code Status Date Activated Date Inactivated Comments Full Code 08/13/2023 12:05 PM 08/13/2023 7:07 PM Code Status History Code Status Date Activated Date Inactivated Comments Full Code 01/18/2022 10:02 AM 01/18/2022 5:57 PM This c ode status was ascertained in the following way: chart. Care Teams Equipment Engineering Technician Relationship Specialty Start Date End Date Joaquin Gallo DO [address] [place] [address] PCP - General Golf Shoe Spike Assembler 08/10/23
--- OUTSIDE RECORDS SUMMARY | 2024-07-16 16:36 | XMS_ITS | Encounter Summary ---
Author Organization [facility] Address [address] [place] [address] Care Team Providers Care Sales Engineering Manager Name Role Phone Cleo Joaquin DO Primary Care Provider Giovani Su PA-C Unavailable Unavai lababraham Encounter Details Date Type Department Care Team (Late st Contact Info) Description 11/09/2022 Procedure Pass [facility] Radiology, [facility] ([place] Scan) [address] [place] [address] [phone] Social History Tobacco Use Types Packs/Day Years [...] place to sleep or slept in a mcc (including now)? No 07/31/2022 Sex and Gender [...] on filedocumented in this encounter Care Teams Sales Engineering Manager Relationship Specialty Start Date End Date Joaquin Gallo DO [address] [place] [address] PCP - General Internal Medicine 07/30/22 Giovani Su PA-C [address] [place] [address] Physician Shucker General Surgery 08/08/22 documented as of this encounter
--- OUTSIDE RECORDS SUMMARY | 2024-07-16 16:36 | XMS_ITS | Encounter Summary ---
Author Organization [facility] Address [address] [place] [address] Care Team Providers Care Senior Finance Manager Name Role Phone Jr Joaquin Gallo DO Primary Care Provider [phone] Reason for Referral * Consultation (Routine) - Closed Specialty Diagnoses / Procedures Referred By Andres lim Referred To Contact Pulmonary Disease Diagnoses Chest x-ray abnormality Vinicio Parnell MD Phone: tel: fax: Rosalia Ann MD [address] [place] [address] Phone: tel: fax: Referral ID Status Reason Start Date Expiration Date Visits Re quested Visits Authorized [id number] Closed 02/11/2018 02/11/2019 1 1 Encounter Details Date Type Department Care Team (Latest Contact Info) Description 02/11/2018 Transcribed Orders [facility] [address] [place] [address], 2nd floor [facility], [address] [place], [place] [id number] Vinicio Parnell MD [address] [place] [phone] Chest x-ray abnormality (Primary Dx) Social History Tobacco Use Types Packs/Day Years [...] as of this encounter Plan of Treatment Scheduled Referrals Name Type Priority Associated Diagnoses Orde r Schedule Ambulatory referral to Pulmonology Outpatient Referral Routine Chest x-ray abnormality Ordered: 02/11/2018 documented as of this encounter Visit Diagnoses Diagnosis Chest x-ray abnormality- Primary Other nonspecific abnormal finding of lung field documented in this encounter Additional Health Concerns Infection Onset Date Last Indicated Resolved Time R/O COVID-19 07/09/2020 07/09/2020 07/10/2020 1:02 AM EST documented as of this encounter Care Teams Senior Finance Manager Relationship Specialty Start Date End Date Jr Joaquin Gallo DO [address] [phone] PCP - General Internal Medicine 03/02/17 documented as of this encounter
--- OUTSIDE RECORDS SUMMARY | 2024-07-16 16:36 | XMS_ITS | Encounter Summary ---
Author Organization [facility] Address [address] [place] [address], [address] [place] [address] Phone Care Team Providers Care Head Correction Officer Name Role Phone Jr Joaquin Gallo DO Primary Care Provider [phone] Encounter Details Date Type Department Care Team (Late st Contact Info) Description 01/07/2018 Abstract [facility] [address] [place] [address] [address] [place] [address] Bjorn Tolentino MD [address] [place] [address] [address] [place] [address] Social History Tobacco Use Types Packs/Day Years [...] documented as of this encounter Care Teams Head Correction Officer Relationship Specialty Start Date End Date Jr Joaquin Gallo DO [address] [facility] [address] [place] [address] PCP - General Internal Medicine 03/02/17 documented as of this encounter
== END 2024-07-16 14:48 | disposition home or self-care (01) ==
PROVIDERS: Visit Provider Internal Medicine Hypertension Specialist
DX: I12.9 Hypertensive chronic kidney disease with stage 1 through stage 4 chronic kidney disease, or unspecified chronic kidney disease (principal); N18.9 Chronic kidney disease, unspecified
CPT/HCPCS: 99214

== ENCOUNTER → 2024-07-16 14:24 | Outpatient (BNVA) | payer MEDICARE, SELFPAY | PROVIDERS: Visit Provider Internal Medicine Hypertension Specialist | DX: I12.9 Hypertensive chronic kidney disease with stage 1 through stage 4 chronic kidney disease, or unspecified chronic kidney disease (principal); N18.9 Chronic kidney disease, unspecified | CPT/HCPCS: 99212 ==

== ENCOUNTER 2024-10-29 13:57 | Outpatient (AMB) | payer MEDICARE, SELFPAY ==
--- OUTSIDE RECORDS SUMMARY | 2024-10-29 14:02 | XMS_ITS | Encounter Summary ---
Author Organization [facility] Address [address] [place] [address] Care Team Providers Care Houseman Name Role Phone Joaquin Gallo DO Primary Care Provider [phone] Encounter Details Date Type Department Care Team (Late Contact Info) Description 10/01/[address] [facility] PRIMARY CARE SCAN Primary Care, Scan Social History Tobacco Use Types Packs/Day Years Used Date Smoking Tobacco: Never Assessed Sex and Gender Information Value Date Recorded Sex Assigned at Not on file Legal Sex Male 6:10 PM EDT Gender Identity Not on file Sexual Orientation Not on file documented as of this encounter Plan of Treatment Upcoming Encounters Date Type Department Care Team (Late st Contact Info) Description 10/31/2024 4:00 PM EDT Consult [facility] Cardiology [address] [place] [phone] Joaquin Gallo DO [address] [phone] Brown Maher MD [address] [place] [phone] documented as of this encounter Visit Diagnoses Not on filedocumented in this encounter Care Teams Houseman Relationship Specialty Start Date End Date Joaquin Gallo DO [address] [address] PCP - General Internal Medicine 01/14/24 documented as of this encounter
--- OUTSIDE RECORDS SUMMARY | 2024-10-29 14:02 | XMS_ITS | Clinical Summary ---
Author Organization [facility] Address [address] [place] [address] Care Team Providers Care Rotary Saw Operator Name Role Phone Joaquin Gallo DO Primary Care Provider Allergies No known active allergies Medications amLODIPine (NORVASC) 5 MG tablet Take 1 [...] Encounters Date Type Department Care Team Description 10/08/2024 Scanned Document [facility] SCAN CARDIOLOGY Cardiology, Scan 10/01/2024 Scanned Document [facility] SCAN CARDIOLOGY Cardiology, Scan 10/01/2024 Orders Only [facility] Cardiology [address] [place] [address] Primary Care, Scan 10/01/2024 Scanned Document [facility] PRIMARY CARE SCAN Primary Care, Scan 10/01/2024 Scanned Document [facility] PRIMARY CARE SCAN Primary Care, Scan 10/01/2024 Transcribe Orders [facility] PRIMARY CARE SCAN Joaquin Gallo DO Aortic aneurysm without rupture, unspecified portion of aorta (Primary Dx); Hyperlipidemia, unspecified hyperlipidemia type; Essential hypertension from Last 3 Months Social History Tobacco Use Types Packs/Day Years Used Date Smoking Tobacco: Never Assessed Sex and Gender Information Value Date Recorded Sex Assigned at Not on file Legal Sex Male 6:10 PM EDT Gender Identity Not on file Sexual Orientation Not on file Plan of Treatment Upcoming Encounters Date Type Department Care Team (Late st Contact Info) Description 10/31/2024 4:00 PM EDT Consult [facility] Cardiology [place] [address] [place] [phone] Joaquin Gallo, DO [address] [place], [place] [phone] Brown Maher MD [address] [place] [address] Health Maintenance Due Date Last Done Comments Hepatitis C Virus Screening 1950 DTaP/Tdap/Td Vaccines (1 - Tdap) 1967 Pneumococcal Vaccines 50+ (1 of 1 - PCV) 1998 Zoster (Shingles) Vaccine (1 of 2) 1998 RSV Vaccine 60 years and older and Patients (1 - 1-dose 75+ series) 2023 COVID-19 Vaccine (1 - 2023-2 5 season) 2024 Influenza Vaccine 01/16/2025 04/18/2019, 03/26/2018, 04/09/2017 Hepatitis B Vaccines Aged Out No long er eligible based on patient's age to complete this topic Procedures Procedure Name Priority Date/Time Associated Diagnosis Comments ULTRASOUND, CAROTID ARTERY DUPLEX SCAN Routine 09/01/2024 3:10 PM EDT ECHOCARDIOGRAM Routine 08/28/2024 3:11 PM EDT ULTRASOUND, ABDOMINAL Routine 08/27/2024 3:09 PM EDT from Last 3 Months Results * ULTRASOUND, CAROTID ARTERY DUPLEX SCAN (09/01/2024 3:10 PM EDT) Anatomical Region Laterality Modality Other us Scan Cardiology IMG LEGACY PROCEDURES Final Resu lt * ECHOCARDIOGRAM (08/28/2024 3:11 PM EDT) Anatomical Region Laterality Modality Other us Scan Cardiology CV LEGACY PROCEDURES Final Resul t * ULTRASOUND, ABDOMINAL (08/27/2024 3:09 PM EDT) Anatomical Region Laterality Modality Other us Scan Cardiology IMG LEGACY PROCEDURES Final Resu lt from Last 3 Months Insurance [facility]IC[facility] Care Teams Rotary Saw Operator Relationship Specialty Start Date End Date Joaquin Glalo DO [address] [facility] [address] [place], [place] [phone] PCP - General Internal Medicine 01/14/24
--- OUTSIDE RECORDS SUMMARY | 2024-10-29 14:02 | XMS_ITS | Encounter Summary ---
Author Organization [facility] Address [address] [place] [address] Care Team Providers Care Curb Setter Helper Name Role Phone Cleo Joaquin DO Primary Care Provider Giovani Su PA-C Unavailable Unavai lababraham Encounter Details Date Type Department Care Team (Late st Contact Info) Description 11/09/2022 Procedure Pass [facility] Radiology, [facility] ([place] Scan) [address] [place] [phone] Social History Tobacco Use Types Packs/Day Years [...] place to sleep or slept in a halfway (including now)? No 07/31/2022 Sex and Gender [...] on filedocumented in this encounter Care Teams Curb Setter Helper Relationship Specialty Start Date End Date Joaquin Gallo DO [address] [place] [address] PCP - General Internal Medicine 07/30/22 Giovani Su PA-C [address] [place] [address] Physician Recruiting Scheduler General Surgery 08/08/22 documented as of this encounter
--- OUTSIDE RECORDS SUMMARY | 2024-10-29 14:02 | XMS_ITS | Encounter Summary ---
Author Organization [facility] Address [address] [place] [address] Care Team Providers Care Sand Car Worker Name Role Phone Joaquin Gallo DO Primary Care Provider [phone] Encounter Details Date Type Department Care Team (Late Contact Info) Description 10/01/2024 Scanned Document [facility] PRIMARY CARE SCAN Primary Care, Scan [...] Info) Description 10/31/2024 4:00 PM EDT Consult [facility] Cardiology [address] [place] [phone] Joaquin Gallo DO [address] [phone] Brown Maher MD [address] [place] [phone] documented as of this encounter Visit Diagnoses Not on filedocumented in this encounter Care Teams Sand Car Worker Relationship Specialty Start Date End Date Joaquin Gallo DO [address] [address] PCP - General Internal Medicine 01/14/24 documented as of this encounter
--- OUTSIDE RECORDS SUMMARY | 2024-10-29 14:02 | XMS_ITS | Encounter Summary ---
Author Organization [facility] Address [address] [place] [address], [address] [place] [address] Phone Care Team Providers Care Auto Transmission Technician Name Role Phone Jr Joaquin Gallo DO Primary Care Provider [phone] Encounter Details Date Type Department Care Team (Late st Contact Info) Description 11/28/2017 Abstract [facility] [address] [place] [address] [address] [place] [address] [place] [address] [place] [address] [address] [place] [address] Social History Tobacco Use Types [...] documented as of this encounter Care Teams Auto Transmission Technician Relationship Specialty Start Date End Date Jr Joaquin Gallo DO [address] [facility] [address] [place] [address] PCP - General Internal Medicine 03/02/17 documented as of this encounter
--- OUTSIDE RECORDS SUMMARY | 2024-10-29 14:02 | XMS_ITS | Encounter Summary ---
Author Organization [facility] Address [address] [address] Phone Care Team Providers Care Concrete Block Layer Name Role Phone Jr Joaquin Gallo DO Primary Care Provider [phone] Encounter Details Date Type Department Care Team (Late st Contact Info) Description 03/02/[address] Dani Parnell [place] [address] [facility] [address] [place] [address] External, Provider Social History Tobacco [...] of this encounter Care Teams Concrete Block Layer Relationship Specialty Start Date End Date Jr Joaquin Gallo DO [address] [phone] PCP - General Internal Medicine 03/02/17 documented as of this encounter
--- OUTSIDE RECORDS SUMMARY | 2024-10-29 14:02 | XMS_ITS ---
Author Organization [facility] Address [address] [place] [address] Care Team Providers Care Track Liner Operator Name Role Phone ANA NELSON JR Primary Care Provider Dwight Kenny Unavailable Unavailable REASON FOR VISIT CCM 1 Encounters Encounter Location Date Provider Diagnosis [facility] [address] [place] [address] 08/18/2024 ANA NELSON Plan Of Treatment Next Appt Details Provider Name:ANA NELSON, 01/27/2025 12:00:00 PM, [address], [address], [place], [address], Progress Notes * Aneudy VILLALPANDODOB:1950 (74 yo M)Acc No.[id number]:08/18/2024 Patient:?Aneudy VILLALPANDO :1950???Age:74 Y???Sex:Male Address:[address] [place] [address], [address], [place], [address] * true * Date:? Generated for Peytoni portia/Dai/eTransmitting on:?10/29/2024 02:02 PM EDT
--- OUTSIDE RECORDS SUMMARY | 2024-10-29 14:02 | XMS_ITS | Clinical Summary ---
Author Organization [employer] Address [address] [place] [address] Care Team Providers Care Fiscal Assistant Name Role Phone Joaquin Gallo DO Primary [...] 1 (one) time each day. Active potassium-calci [id number] [phone] mg powder in packet Take 75 mg [...] place to sleep or slept in a residential (including now)? No 07/31/2022 Sex and Gender [...] Vaccine (2023-2 5 season) 2024 Influenza Vaccine (Season Ended) 2025 04/18/2019, 03/26/2018, 04/09/2017 Pneumococcal Vaccine: 50+ Years Completed [...] topic Meningococcal Vaccine Aged Out No amalia niall eligible based on patient's age to complete this topic RSV <20 Months Aged Out No longer ramiro gible based on patient's age to complete this topic Insurance [employer] Advance Directives * Full Code (Latest Code Status on File) Date Activated Date Inactivated Comments 07/31/2022 3:44 AM 08/04/2022 1:51 PM Care Teams Fiscal Assistant Relationship Specialty Start Date End Date Joaquin Gallo DO [address] [place] [address] PCP - General Internal Medicine 07/30/22 Giovani Su PA-C [address] [place] [address] Physician Electric Motor Tester Assembler General Surgery 08/08/22
--- OUTSIDE RECORDS SUMMARY | 2024-10-29 14:02 | XMS_ITS | Encounter Summary ---
Author Organization [facility] Address [address] [place], [place] [address] Care Team Providers Care Business Taxes Specialist Name Role Phone Cleo Joaquin Primary Care Provider Giovani Su PA-C Unavailable Unavai lababraham Encounter Details Date Type Department Care Team (Late st Contact Info) Description 07/31/2022 Procedure Pass [facility], Radiology (Ultrasound) [address] [place], [place] [id number] Social History Tobacco Use Types Packs/Day Years [...] place to sleep or slept in a custodial (including now)? No 07/31/2022 Sex and Gender [...] documented as of this encounter Care Teams Business Taxes Specialist Relationship Specialty Start Date End Date Joaquin Gallo DO [address] [place] [address] PCP - General Internal Medicine 07/30/22 Giovani Su PA-C [address] [place] [address] Physician Bench Mechanic General Surgery 08/08/22 documented as of this encounter
--- OUTSIDE RECORDS SUMMARY | 2024-10-29 14:02 | XMS_ITS | Clinical Summary ---
Author Organization [facility] Address [address] [place] [address] Care Team Providers Care Engineering Agent Name Role Phone Joaquin Gallo DO Primary Care Provider [phone] Allergies No known active allergies Medications Medication [...] Overview: Added automatically from request for surgery [id number] History of adenomatous polyp of colon 06/20/2021 Overview: Added automatically from request for surgery [id number] Social History Tobacco Use Types Packs/Day Years [...] Advance Directives For more information, please contact: [phone] Documents on File Type Date Recorded Patient Cabin Supervisor Expl anation Advance Directive and Living Will 01/18/2022 7:13 AM Latest Code Status on File Code Status Date Activated Date Inactivated Comments Full Code 08/13/2023 12:05 PM 08/13/2023 7:07 PM Code Status History Code Status Date Activated Date Inactivated Comments Full Code 01/18/2022 10:02 AM 01/18/2022 5:57 PM This c ode status was ascertained in the following way: chart. Care Teams Engineering Agent Relationship Specialty Start Date End Date Joaquin Gallo DO PCP - General Feller Hand 08/10/23
--- OUTSIDE RECORDS SUMMARY | 2024-10-29 14:02 | XMS_ITS | Encounter Summary ---
Author Organization [facility] Address [address] [place] [address], [address] [place] [address] Phone Care Team Providers Care Sports Commentator Name Role Phone Jr Joaquin Gallo DO Primary Care Provider [phone] Encounter Details Date Type Department Care Team (Late st Contact Info) Description 01/07/2018 Abstract [facility] [address] [place] [address] [address] [place] [address] Bjorn Tolentino MD [address] [place] [address] [address] [place] [address] Social History Tobacco Use Types [...] documented as of this encounter Care Teams Sports Commentator Relationship Specialty Start Date End Date Jr Joaquin Gallo DO [address] [facility] [address] [place] [address] PCP - General Internal Medicine 03/02/17 documented as of this encounter
--- OUTSIDE RECORDS SUMMARY | 2024-10-29 14:02 | XMS_ITS ---
Author Organization [employer] Address [address] [place] [address] Care Team Providers Care Multimedia Developer Name Role Phone ANA NELSON JR Primary Care Provider Dwight Kenny Unavailable Unavailable Encounters Encounter Location Date Provider Diagnosis [email or web address] [address] [place] [address] 09/30/2024 ANA NELSON Plan Of Treatment Next Appt Details Provider Name:ANA NELSON, 01/27/2025 12:00:00 PM, [address], [address], [place], [address], Progress Notes * Aneudy VILLALPANDODOB:1950 (74 yo M)Acc No.[id number]:09/30/2024 Patient:?Aneudy VILLALPANDO :1950???Age:74 Y???Sex:Male Address:[address] [place] [address], [address], [place], [address] * true * Date:? Generated for Printi ng/Faxing/eTransmitting on:?10/29/2024 02:01 PM EDT
--- OUTSIDE RECORDS SUMMARY | 2024-10-29 14:02 | XMS_ITS | Encounter Summary ---
Author Organization [facility] Address [address] [place] [address] Care Team Providers Care Market Research Coordinator Name Role Phone Jr Joaquin Gallo DO Primary Care Provider [phone] Encounter Details Date Type Department Care Team (Late st Contact Info) Description 08/03/2021 Documentation [address] [facility] [address] [place], [place] [address] Siomara Guy, UNIT COORDINATOR [address] [facility] [address] [place] [address] Social History Tobacco Use Types [...] on filedocumented in this encounter Care Teams Market Research Coordinator Relationship Specialty Start Date End Date Jr Joaquin Gallo DO [address] [place] [address] PCP - General Internal Medicine 03/02/17 documented as of this encounter
--- OUTSIDE RECORDS SUMMARY | 2024-10-29 14:02 | XMS_ITS | Clinical Summary ---
Author Organization [facility] [place] [address] Care Team Providers Care Field Seismologist Name Role Phone Joaquin Gallo DO Primary Care Provider [phone] Surgical History Surgery Date Site/Laterality Comments COLONOSCOPY 01/18/2022 N/A PROCEDURE:COLONOSCOPY;COMMENT :Procedure: COLONOSCOPY PROPOFOL; Surgeon: Donn Salmon DO; Location: [facility]; Service: Gastroenterology; Laterality: N/A; UPPER GASTROINTESTINAL ENDOSCOPY 01/18/2022 N/A PROCEDURE:UPPER GASTROINTESTINAL ENDOSCOPY;COMMENT:Procedure: UPPER ENDOSCOPY-EGD; Surgeon: Donn Salmon DO; Location: [facility]; Service: Gastroenterology; Laterality: N/A; COLONOSCOPY 08/13/2023 N/A PROCEDURE:COLONOSCOPY;COMMENT :Procedure: COLONOSCOPY propofol pediscope; Surgeon: Donn Salmon DO; Location: [facility]; Service: Gastroenterology; Laterality: N/A; Medical History Medical History Date Comments Hypertension DX:Hypertension Sleep apnea DX:Sleep apnea;C OMMENT:not using Colon polyp DX:Colon polyp Chronic diarrhea DX:Chronic diar melecio Visual impairment DX:Visual impa irment;COMMENT:glasses Aortic aneurysm (CMS/HCC V24) DX :Aortic aneurysm (HCC);COMMENT:followed by cardiology [facility] Social History Tobacco Use Types Packs/Day Years Used Date Smoking Tobacco: Former Smokeless Tobacco: Never Alcohol Use Standard Drinks/Week Comments Yes 0 (1 standard drink = 0.6 oz pur e alcohol) Sex and Gender Information Value Date Recorded Sex Assigned at Not on file Legal Sex Male 9:16 PM EST Gender Identity Not on file [...] DTaP,Tdap,and Td Vaccines (1 - Tdap) 1967 Pneumococcal Vaccine: 50+ Ye ars (1 of 1 - PCV) 1998 Zoster Vaccines (1 of 2) 1998 Cholesterol Screening (Lipid Panel) 05/20/2022 Depression Screening 05/20/2022 Falls Risk Assessment 05/20/2022 Hepatitis C Screening 05/20/2022 Social Influencers of Health Screening 05/20/2022 RSV Immunization Adult Patie nts (1 - 1-dose 75+ series) 2023 COVID-19 Vaccine ( - 2023-2 5 season) 2024 Influenza Vaccine (Season Ended) 2025 Colorectal Cancer Screening: Colonoscopy Discontinued 01/18/2022 HIB [...] patient's age to complete this topic Meningococcal B Vaccine Aged Out No l onger eligible based on patient's age to complete this topic RSV Immunization Patients Un shira 20 months Aged Out No longer eligible b ased on patient's age to complete this topic Varicella Vaccines Aged Out No longer eligible based on patient's age to complete this topic Care Teams Field Seismologist Relationship Specialty Start Date End Date Joaquin Gallo DO [address] [address] PCP - General 08/10/23
--- OUTSIDE RECORDS SUMMARY | 2024-10-29 14:02 | XMS_ITS | Encounter Summary ---
Author Organization [facility] Address [address] [facility] [place] [address] Phone Care Team Providers Care Academic Coach Name Role Phone Jr Joaquin Gallo DO Primary Care Provider [phone] Encounter Details Date Type Department Care Team (Late st Contact Info) Description 10/31/[address] Dani Parnell [place] [address] [facility] [address] [place] [address] Dani Parnell MD [address] [place] [address] Social History Tobacco Use Types Packs/Day [...] documented as of this encounter Care Teams Academic Coach Relationship Specialty Start Date End Date Jr Joaquin Gallo DO [address] [phone] PCP - General Internal Medicine 03/02/17 documented as of this encounter
--- OUTSIDE RECORDS SUMMARY | 2024-10-29 14:02 | XMS_ITS ---
Author Organization [employer] Address [address] [place] [address] Care Team Providers Care Flying Instructor Name Role Phone ANA NELSON JR Primary Care Provider Dwight Kenny Unavailable Unavailable REASON FOR VISIT CCM 2 Encounters Encounter Location Date Provider Diagnosis [facility] [employer] [facility] [address] [place] [address] 09/29/2024 ANA NELSON Plan Of Treatment Next Appt Details Provider Name:ANA NELSON, 01/27/2025 12:00:00 PM, [address], [address], [place], [address], Progress Notes * Aneudy VILLALPANDODOB:1950 (74 yo M)Acc No.[id number]:09/29/2024 Patient:?Aneudy VILLALPANDO :1950???Age:74 Y???Sex:Male Address:[address] [place] [address], [address], [place], [address] * true * Date:? Generated for Peytoni portia/Dai/eTransmitting on:?10/29/2024 02:02 PM EDT
--- OUTSIDE RECORDS SUMMARY | 2024-10-29 14:02 | XMS_ITS | Encounter Summary ---
Author Organization [facility] Address [address] [place] [address] Care Team Providers Care Cementer Helper Name Role Phone Jr Joaquin Gallo DO Primary Care Provider [phone] Reason for Referral * Consultation (Routine) - Closed Specialty Diagnoses / Procedures Referred By Andres lim Referred To Contact Pulmonary Disease Diagnoses Chest x-ray abnormality Vinicio Parnell MD Phone: tel: fax: Rosalia Ann MD [address] [place] [address] Phone: tel: fax: Referral ID Status Reason Start Date Expiration Date Visits Re quested Visits Authorized [id number] Closed 02/11/2018 02/11/2019 1 1 Encounter Details Date Type Department Care Team (Latest Contact Info) Description 02/11/2018 Transcribed Orders [facility] [address] [place] [address], 2nd floor [facility], [address] [place], [place] [id number] Vinicio Parnell MD [address] [place] [phone] Chest x-ray abnormality (Primary Dx) Social [...] documented as of this encounter Care Teams Cementer Helper Relationship Specialty Start Date End Date Jr Joaquin Gallo DO [address] [phone] PCP - General Internal Medicine 03/02/17 documented as of this encounter
--- OUTSIDE RECORDS SUMMARY | 2024-10-29 14:02 | XMS_ITS | Encounter Summary ---
Author Organization [facility] Address [address] [place] [address] Care Team Providers Care Hostel Manager Name Role Phone Cleo Joaquin DO Primary Care Provider Giovani Su PA-C Unavailable Unavai lababraham Encounter Details Date Type Department Care Team (Late st Contact Info) Description 07/30/2022 Procedure Pass [facility] Radiology, [facility] ([place] Scan) [address] [place] [phone] Social History Tobacco Use Types Packs/Day Years [...] documented as of this encounter Care Teams Hostel Manager Relationship Specialty Start Date End Date Joaquin Gallo DO [address] [place] [address] PCP - General Internal Medicine 07/30/22 Giovani Su PA-C [address] [place] [address] Physician Production Intern General Surgery 08/08/22 documented as of this encounter
--- OUTSIDE RECORDS SUMMARY | 2024-10-29 14:02 | XMS_ITS | Encounter Summary ---
Author Organization [facility] Address [address] [place] [address] Care Team Providers Care Side Laster Tack Name Role Phone Joqauin Gallo DO Primary Care Provider [phone] Encounter Details Date Type Department Care Team (Late st Contact Info) Description 10/08/2024 Scanned Document [facility] Cardiology, Scan Social History Tobacco Use Types Packs/Day [...] Info) Description 10/31/2024 4:00 PM EDT Consult [facility] Cardiology [address] [place], [place] [phone] Joaquin Gallo DO [address] [address] Brown Maher MD [address] [place] [address] documented as of this encounter Visit Diagnoses Not on filedocumented in this encounter Care Teams Side Laster Tack Relationship Specialty Start Date End Date Joaquin Gallo DO [address] [place] [address] PCP - General Internal Medicine 01/14/24 documented as of this encounter
--- OUTSIDE RECORDS SUMMARY | 2024-10-29 14:02 | XMS_ITS | Encounter Summary ---
Author Organization [facility] Address [address] [place] [address] Care Team Providers Care Cut Filer Name Role Phone Cleo Joaquin DO Primary Care Provider Giovani Su PA-C Unavailable Unavai lababraham Encounter Details Date Type Department Care Team (Late st Contact Info) Description 11/09/[address] [facility] Radiology, [facility] ([place] Scan) [address] [place] [phone] Social History Tobacco Use Types Packs/Day Years [...] place to sleep or slept in a fpc (including now)? No 07/31/2022 Sex and Gender [...] on filedocumented in this encounter Care Teams Cut Filer Relationship Specialty Start Date End Date Joaquin Gallo DO [address] [place] [address] PCP - General Internal Medicine 07/30/22 Giovani Su PA-C [address] [place] [address] Physician Graphics Programmer General Surgery 08/08/22 documented as of this encounter
--- OUTSIDE RECORDS SUMMARY | 2024-10-29 14:02 | XMS_ITS | Encounter Summary ---
Author Organization [facility] Address [address] [address] Phone Care Team Providers Care Semiconductor Lab Technician Name Role Phone Jr Joaquin Gallo DO Primary Care Provider [phone] Reason for Referral * Imaging (Routine) - Closed Specialty Diagnoses / Procedures Referred By Contac t Referred To Contact Diagnostic Radiology Procedures CT Chest wo IV Contrast Dani Parnell MD Phone: tel: fax: Referral ID Status Reason Start Date Expiration Date Visits Re quested Visits Authorized [id number] Closed 03/15/2018 03/15/2019 1 1 Encounter Details Date Type Department Care Team (Late st Contact Info) Description 03/15/[address] Dani Parnell [place] [address] [address] Dani Parnell MD [address] [place] [phone] Social History Tobacco Use Types Packs/Day [...] documented as of this encounter Care Teams Semiconductor Lab Technician Relationship Specialty Start Date End Date Jr Joaquin Gallo DO [address] [place] [address] [phone] PCP - General Internal Medicine 03/02/17 documented as of this encounter
--- OUTSIDE RECORDS SUMMARY | 2024-10-29 14:02 | XMS_ITS | Clinical Summary ---
Author Organization [address] Address [address] [place] [address] Care Team Providers Care Organic Section Technical Lead Name Role Phone Jr Joaquin Gallo DO Primary Care Provider [phone] Allergies No known active allergies Medications amLODIPine [...] (RZV) 2 Dose Standard Series) 1998 RSV Immunization (1 - 1-dose 75+ series) 2023 Diabetes screening 07/10/2023 07/10/2020, 07/10/2020, 07/09/2020 Covid-19 vaccine series ( - season) 2024 Influenza vaccine 02/16/2025 04/18/2019, 03/26/2018, 04/09/2017 Lipid disorder screening 07/10/2025 021, 07/10/2020 Pneumococcal Vaccine (50+ years) Completed 05/13/2018, 05/09/2017 Colon cancer screening, Colonoscopy Discontinued 08/13/2023, 01/18/2022 Meningococcal Vaccine Aged Out No amalia niall [...] - 5.6 % 07/10/2020 11:27 AM EST [facility] Comment: Hemoglobin A1c [...] mg/dL 103 mg/dL 07/10/2020 11:27 AM EST [facility] Comment: Estimated average glucose (eAG) is a calculated value designed to estimate ??the expected average blood glucose level throughout the day from a single ??measurement of ??glycated hemoglobin A1C (HbA1c) and follows the calculation proposed by the [place] [employer] (Diabetes Care 31: 1-6, 2008). It may have less accuracy in children, women and patients with certain erythrocyte disorders. Blood Venipuncture / Unknown 07/10/2020 5:58 AM EST 07/10/2020 6:07 AM EST us Malini Brewster MD LAB BLOOD ORDERABLES Final Result [facility] [address] [place] [address], [facility] [[email or web address]] [phone] * Lipid panel (07/10/2020 5:58 AM EST) [facility] Signature Cholesterol 184 See Comment mg/dL 07/10/2020 7:28 AM EST [facility] Comment: Total Cholesterol (mg/dL) ?Adults (>18 years) ? Children (<18 years) Desirable ?<200 ? <170 Borderline-High ?200-239 ?170-199 High ? >=240 ?>=200 ? HDL 77 >=40 mg/dL 07/10/2020 7:28 AM EST [facility] Triglycerides 90 See Comment mg/dL 07/10/2020 7:28 AM EST [facility] Comment: Triglycerides (mg/dL) ?Adults (>18 years) ? Children (<18 years) Desirable ?<150 ? Not Established Borderline-High ?150-199 ?Not Established High ? 200-499 ?Not Established ?? Chol/HDL Ratio 2.4 0.0 - 5.0 07/10/2020 7:28 AM [facility] LDL Calculated 89 See Comment mg/dL 07/10/2020 7:28 AM [facility] Comment: LDL Cholesterol (mg/dL) ?Adults (>18 years) ? Children (<18 years) Desirable ?<100 ? <110 Above Desirable ?100-129 ?Not Established Borderline-High ?130-159 ?110- 129 High ? 160-189 ?>=130 Very High? >=190 ? Not Established Blood Venipuncture / Unknown 07/10/2020 5:58 AM EST 07/10/2020 6:07 AM EST Malini Brewster MD LAB BLOOD ORDERABLES Final Result Performing Organization Address City/State/[facility] de Phone Number [facility] [address] [place] [address] from Last 3 Months or Most Recently Relevant to Health Maintenance Insurance [facility]ICARE [facility] [employer] [facility] MGD [place] [facility] MGD Advance Directives * Full ACLS (Latest Code Status on File) Date Activated Date Inactivated Comments 07/10/2020 3:08 AM 07/10/2020 8:45 PM Care Teams Organic Section Technical Lead Relationship Specialty Start Date End Date Jr Joaquin Gallo DO [address] [facility] [address] [place] [phone] PCP - General Internal Medicine 03/02/17
--- OUTSIDE RECORDS SUMMARY | 2024-10-29 14:02 | XMS_ITS | Encounter Summary ---
Author Organization [facility] Address [address] [address] Phone Care Team Providers Care Spanish Interpreter/Translator Name Role Phone Jr Joaquin Gallo DO Primary Care Provider [phone] Encounter Details Date Type Department Care Team (Late st Contact Info) Description 03/02/[address] Dani Parnell [place] [address] [address] External, Provider Social History Tobacco [...] documented as of this encounter Care Teams Spanish Interpreter/Translator Relationship Specialty Start Date End Date Jr Joaquin Gallo DO [address] [place] [address] PCP - General Internal Medicine 03/02/17 documented as of this encounter
--- OUTSIDE RECORDS SUMMARY | 2024-10-29 14:02 | XMS_ITS | Patient Health Record ---
Author Organization [facility] Address [address] [place] [address] Care Team Providers Care Admin Asst Name Role Phone LESLIE ANA QUIJANO Primary Care Provider [phone] Dwight Kenny Unavailable Allergies No Known Allergies Results Component Value Reference Range Notes VITAMIN B12 Reviewed date:01/14/2024 09:06:59 AM Interpretation: Performing Lab:[facility], [facility] [place], [place] [phone] Abram Artis M.D. Notes/Report: 0; 0; 0; 0; 0; 0; 0 FASTING:YES FASTING: YES VITAMIN B12 [phone] pg/mL Please Note: Although the reference range for vitamin B12 is 200-1100 pg/mL, it has been reported that between 5 and 10% of patients with values between 200 and 400 pg/mL may experience neuropsychiatric and hematologic abnormalities due to occult B12 deficiency; less than 1% of patients with values above 400 pg/mL will have symptoms. HEMOGLOBIN A1c Reviewed date:01/14/2024 09:06:59 AM Interpretation: Performing Lab:[facility], [employer] [place], [place] [phone] Abram Artis M.D. Notes/Report: 0; 0; 0; 0; 0; 0; 0 FASTING:YES FASTING: YES HEMOGLOBIN A1c 5.5 <5.7 % of total Hgb For the purpose of screening for the presence of diabetes: <5.7% Consistent with the absence of diabetes 5.7-6.4% Consistent with increased risk for diabetes (prediabetes) > or =6.5% Consistent with diabetes This assay result is consistent with a decreased risk of diabetes. Currently, no consensus exists regarding use of hemoglobin A1c for diagnosis of diabetes in children. According to [place] Diabetes Association (ADA) guidelines, hemoglobin A1c <7.0% represents optimal control in non- diabetic patients. Different metrics may apply to specific patient populations. Standards of Medical Care in Diabetes(ADA). This test was performed on the Naima ngoc c503 platform. Effective 08/20/23, a change in test platforms from the [employer]er to the [employer]aim[employer] ngoc c503 may have shifted HbA1c results compared to historical results. Based on laboratory validation testing conducted at [facility], the [employer]aima platform relative to the Almonte platform had an average increase in HbA1c value of < or = 0.3%. This difference is within accepted variability established by the National Glycohemoglobin Standardization Program. Note that not all individuals will have had a shift in their results and direct comparisons between historical and current results for testing conducted on different platforms is not recommended. CREATINE KINASE, TOTAL Reviewed date:01/14/2024 09:06:59 AM Interpretation: Performing Lab:[facility], [facility] [employer] [place] [phone] Abram Artis M.D. Notes/Report: 0; 0; 0; 0; 0; 0; 0 FASTING:YES FASTING: YES CREATINE KINASE, TOTAL 52 44-196 U/L ALT Reviewed date:01/14/2024 09:06:59 AM Interpretation: Performing Lab:[facility] [place] [id number] Abram Artis M.D. Notes/Report: 0; 0; 0; 0; 0; 0; 0 FASTING:YES FASTING: YES ALT 13 9-46 U/L AST Reviewed date:2024 09:06:59 AM Interpretation: Performing Lab:[facility], [facility] [place] [id number] Abram Artis M.D. Notes/Report: 0; 0; 0; 0; 0; 0; 0 FASTING:YES FASTING: YES AST 18 10-35 U/L BASIC METABOLIC PANEL Reviewed date:01/14/2024 09:06:59 AM Interpretation: Performing Lab:[facility], [employer] [phone] Abram Artis M.D. Notes/Report: 0; 0; 0; 0; 0; 0; 0 FASTING:YES FASTING: YES GLUCOSE 102 65-99 mg/dL Fasting reference interval For someone without known diabetes, a glucose value between 100 and 125 mg/dL is consistent with prediabetes and should be confirmed with a follow-up test. UREA NITROGEN (BUN) 20 7-25 mg/dL CREATININE 1.35 0.70-1.28 mg/dL EGFR 55 > OR = 60 mL/min/1.73m2 BUN/CREATININE RATIO 15 6-22 (calc) SODIUM 136 135-146 mmol/L POTASSIUM 5.1 3.5-5.3 mmol/L CHLORIDE 103 98-110 mmol/L CARBON DIOXIDE 25 20-32 mmol/L CALCIUM 9.7 8.6-10.3 mg/dL LIPID PANEL WITH REFLEX TO D IRECT LDL Reviewed date:01/14/2024 09:06:59 AM Interpretation: Performing Lab:[facility], [employer] [phone] Abram Artis M.D. Notes/Report: 0; 0; 0; 0; 0; 0; 0 FASTING:YES FASTING: YES CHOLESTEROL, TOTAL 169 <200 mg/dL HDL CHOLESTEROL 64 > OR = 40 mg/dL TRIGLYCERIDES 80 <150 mg/dL LDL-CHOLESTEROL 88 Reference range: <100 Desirable range <100 mg/dL for primary prevention; <70 mg/dL for patients with CHD or diabetic patients with > or = 2 CHD risk factors. LDL-C is now calculated using the Nick-Juan Luis calculation, which is a validated novel method providing better accuracy than the Friedewald equation in the estimation of LDL-C. Nick SS et al. LLOYD. 2013;310(19): 7588-5562 (http://education.FastHealth.com/faq/POI567) CHOL/HDLC RATIO 2.6 <5.0 (calc) NON HDL CHOLESTEROL 105 <130 mg/dL (calc) For patients with diabetes plus 1 major ASCVD risk factor, treating to a non-HDL-C goal of <100 mg/dL (LDL-C of <70 mg/dL) is considered a therapeutic option. LIPID PANEL WITH REFLEX TO D IRECT LDL Reviewed date:07/24/2024 02:59:59 PM Interpretation: Performing Lab:[facility], [employer] [phone] Abram Artis M.D. Notes/Report: 0; 0; 0; 0; 0; 0 FASTING:YES FASTING: YES CHOLESTEROL, TOTAL 157 <200 mg/dL HDL CHOLESTEROL 54 > OR = 40 mg/dL TRIGLYCERIDES 105 <150 mg/dL LDL-CHOLESTEROL 83 Reference range: <100 Desirable range <100 mg/dL for primary prevention; <70 mg/dL for patients with CHD or diabetic patients with > or = 2 CHD risk factors. LDL-C is now calculated using the Nick-Juan Luis calculation, which is a validated novel method providing better accuracy than the Friedewald equation in the estimation of LDL-C. Nick SS et al. LLOYD. 2013;310(19): 1225-8459 (http://education.FastHealth.Redfin/faq/QAE025) CHOL/HDLC RATIO 2.9 <5.0 (calc) NON HDL CHOLESTEROL 103 <130 mg/dL (calc) For patients with diabetes plus 1 major ASCVD risk factor, treating to a non-HDL-C goal of <100 mg/dL (LDL-C of <70 mg/dL) is considered a therapeutic option. HEPATITIS C ANTIBODY Reviewed date:07/24/2024 02:59:59 PM Interpretation: Performing Lab:1, [employer] [phone] Abram Artis M.D. Notes/Report: 0; 0; 0; 0; 0; 0 FASTING:YES FASTING: YES HEPATITIS C ANTIBODY NON-REACTIVE NON-REACTIVE HCV antibody was non-reactive. There is no laboratory evidence of HCV infection. In most cases, no further action is required. However, if recent HCV exposure is suspected, a test for HCV RNA (test code 26367) is suggested. For additional information please refer to http://education.[employer]Redfin/faq/EON17x0 (This link is being provided for informational/ educational purposes only.) CREATINE KINASE, TOTAL Reviewed date:07/24/2024 02:59:59 PM Interpretation: Performing Lab:[facility] [address] [place] [address] Abram Artis M.D. Notes/Report: 0; 0; 0; 0; 0; 0 FASTING:YES FASTING: YES CREATINE KINASE, TOTAL 94 19-278 U/L AST Reviewed date:2024 03:00:13 PM Interpretation: Performing Lab:[facility] [address] [place] [address] Abram Artis M.D. Notes/Report: 0; 0; 0; 0; 0; 0 FASTING:YES FASTING: YES AST 21 10-35 U/L ALT Reviewed date:07/24/2024 03:00:13 PM Interpretation: Performing Lab:[facility] [address] [place] [address] Abram Artis M.D. Notes/Report: 0; 0; 0; 0; 0; 0 FASTING:YES FASTING: YES ALT 14 9-46 U/L BASIC METABOLIC PANEL Reviewed date:07/24/2024 03:00:13 PM Interpretation: Performing Lab:[facility] [address] [place] [address] Abram Artis M.D. Notes/Report: 0; 0; 0; 0; 0; 0 FASTING:YES FASTING: YES GLUCOSE 101 65-99 mg/dL Fasting reference interval For someone without known diabetes, a glucose value between 100 and 125 mg/dL is consistent with prediabetes and should be confirmed with a follow-up test. UREA NITROGEN (BUN) 21 7-25 mg/dL CREATININE 1.45 0.70-1.28 mg/dL EGFR 50 > OR = 60 mL/min/1.73m2 BUN/CREATININE RATIO 14 6-22 (calc) SODIUM 136 135-146 mmol/L POTASSIUM 5.1 3.5-5.3 mmol/L CHLORIDE 101 98-110 mmol/L CARBON DIOXIDE 28 20-32 mmol/L CALCIUM 10.4 8.6-10.3 mg/dL Reason For Referral Reason Referral Diagnosis 1 Aortic aneurysm of u nspecified site, without rupture (I71.9) Diagnosis 2 Hyperlipidemia, unsp ecified (E78.5) Diagnosis 3 Essential (primary) hypertension (I10) Referral Organization [facility] Referring Provider First Name ANA Referring Provider Last Name LESLIE Referring Provider Speciality Internal M edicine Referred Provider Specialty Cardiology Referral Priority Routine Medications Medication SIG (Take, Route, Frequency, Duration) Notes Start Date End Date Status Colestipol HCl 1 GM TAKE 1 TABLET BY MOUTH 2 TIMES A DAY. Oral for 30 Active amLODIPine Besylate 5 MG TAKE 1 TABLET B Y MOUTH EVERY DAY for 90 Active ALPRAZolam 0.25 MG 1 tablet as needed Oral Twice a day for 30 days 05/02/2021 Active Lansoprazole 30 MG TAKE 1 CAPSULE BY MOUTH EVERY DAY BEFORE A MEAL FOR 90 DAYS for 90 Active Ibuprofen 600 MG TAKE 1 TABLET BY MOUTH 3 TIMES A DAY Oral for 7 Not-Taking Aspirin 81 MG 1 -2 tablet Orally Once a day Active hydroCHLOROthiazide 25 MG TAKE 1 TABLET BY MOUTH EVERY DAY Oral Not-Taking Losartan Potassium 25 MG 1 tablet Orally Once a day 01/20/2020 Active Escitalopram Oxalate 20 MG TAKE 1 TABLET BY MOUTH EVERY DAY for 90 Active Atorvastatin Calcium 10 MG TAKE 1 TABLET BY MOUTH EVERY DAY for 90 Active Metoprolol Succinate ER 50 MG TAKE 1 TAB LET BY MOUTH EVERY DAY Oral Active Immunizations Vaccine Route Administration Date Status Comme nts Influenza, high dose seasonal Unknown 04/18/2019 Administered Influenza, quadrivalent IM Intramuscular 04/09/2017 Admini stered Influenza, quadrivalent Unknown 03/26/2018 Administered Influenza, quadrivalent Unknown 04/18/2019 Administered Pneumococcal conjugate PCV 13 IM Intramuscular 05/09/2017 Administered Pneumococcal polysaccharide PPV23 IM Intramuscular 05/13/2018 Administered Tetanus toxoid, absorbed Unknown 07/20/2008 Administere d Zoster Unknown 09/02/2015 Administered Zoster Unknown 07/22/2019 Administered Social History Tobacco Use: Social History Observation Description Date Details (start date - stop date) Former Smoker NA - NA Tobacco Use/Smoking Question Answer Notes Are you a former smoker How long has it been since you last smoked? > 10 years Alcohol Screen (Audit-C) Question Answer Notes Did you have a drink contain ing alcohol in the past year? Yes How often did you have a dri nk containing alcohol in the past year? Monthly or less (1 point) How many drinks did you have on a typical day when you were drinking in the past year? 1 or 2 drinks (0 point) How often did you have 6 or more drinks on one occasion in the past year? Never (0 point) Points 1 Interpretation Negative Section Notes: quit smoking 30 years ago quit smoking 30 years ago quit smoking 30 years ago quit smoking 30 years ago quit smoking 30 years ago quit smoking 30 years ago quit smoking 30 years ago quit smoking 30 years ago quit smoking 30 years ago quit smoking 30 years ago quit smoking 30 years ago quit smoking 30 years ago quit smoking 30 years ago quit smoking 30 years ago quit smoking 30 years ago quit smoking 30 years ago quit smoking 30 years ago Problems Problem Type SNOMED Code ICD Code Onset Dates Problem Status W/U Status Risk Notes Problem Leukocytosis (172905687) Elevated white blood cell count, unspecified (D72.829) Active confirmed Problem Testicular hypofunction (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) 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 confirmed Problem Vitamin B deficiency (36477558) Vitamin B deficiency, unspecified (E53.9) Active confirmed Problem Vitamin D deficiency (30036078) Vitamin D deficiency, unspecified (E55.9) Active confirmed Problem Anxiety disorder (649647842) Anxiety disorder, unspecified (F41.9) Active confirmed Problem Adjustment disorder with mixed anxiety and depressed mood (539024427) Adjustment disorder with mixed anxiety and depressed mood (F43.23) Active confirmed Problem Transient global amnesia (054497154) Transient global amnesia (G45.4) Active confirmed Problem Obstructive sleep apnea syndrome (disorder) (53895076) Obstructive sleep apnea (adult) (pediatric) (G47.33) Active confirmed Problem Aortic aneurysm (33724571) Aortic aneurysm of unspecified site, without rupture (I71.9) Active confirmed Problem Gastro-esophageal reflux disease without esophagitis (613270603) Gastro-esophagea l reflux disease without esophagitis (K21.9) Active confirmed Problem Palpitations (24920746) Palpitations (R00.2) Active confirmed Problem Abnormal feces (636753903) Other fecal abnormalities (R19.5) Active confirmed Problem Diarrhea (66521456) Diarrhea, unspecified (R19.7) Active confirmed Problem Fatigue (03299164) Other fatigue (R53.83) Active confirmed Problem Impaired fasting glucose (512950437) Impaired fasting glucose (R73.01) Active confirmed Problem Abnormal findings on diagnostic imaging of skull and head (517696735) Abnormal findings on diagnostic imaging of skull and head, not elsewhere classified (R93.0) Active confirmed Problem Elevated PSA (935523804) Elevated prostate specific antigen [PSA] (R97.2) Active confirmed Problem Essential hypertension (85180085) Essential (primary) hypertension (I10) Active confirmed Problem Hyperlipidemia (31948489) Hyperlipidemia, unspecified (E78.5) Active confirmed Problem Benign prostatic hypertrophy without outflow obstruction (318382064) Benign prostatic hyperplasia without lower urinary tract symptoms (N40.0) Active confirmed Problem Lower urinary tract symptoms due to benign prostatic hypertrophy (41778749865174) Benign prostatic hyperplasia with lower urinary tract symptoms (N40.1) Active confirmed Problem Chronic kidney disease stage 3 (disorder) (838346674) Chronic kidney disease, stage 3 unspecified (N18.30) Active confirmed Problem Chronic kidney disease stage 3A (disorder) (276023039) Chronic kidney disease, stage 3a (N18.31) Active confirmed Vital Signs Heart Rate 76 /min 01/15/2024 Temperature 98.1 degrees Fahrenheit 01/15/2024 Respiratory Rate 16 /min 07/29/2024 Oximetry 96 % 01/15/2024 Blood pressure diastolic 65 mm Hg 07/29/2024 Height 68 in 07/29/2024 Blood pressure systolic 112 mm Hg 07/29/2024 Weight 217 lbs 07/29/2024 BMI 32.99 kg/m2 07/29/2024 Encounters Encounter Location Date Provider Diagnosis [facility] [address] [place] [address] 01/15/2024 ANA NELSON Chronic kidney disea se, stage 3a N18.31 ; Encounter for general adult medical examination without abnormal findings Z00.00 ; Encounter for screening examination for other mental health and behavioral disorders Z13.39 ; Essential (primary) hypertension I10 ; Hyperlipidemia, unspecified E78.5 ; Gastro-esophageal reflux disease without esophagitis K21.9 ; Palpitations R00.2 ; Impaired fasting glucose R73.01 and Encounter for screening for other viral diseases Z11.59 [facility] [address] [place] [address] 07/29/2024 ANA NELSON Essential (primary) hypertension I10 ; Chronic kidney disease, stage 3 unspecified N18.30 ; Hyperlipidemia, unspecified E78.5 ; Other fatigue R53.83 ; Impaired fasting glucose R73.01 and Benign prostatic hyperplasia with lower urinary tract symptoms N40.1 [facility] [address] [place] [phone] 01/14/2024 ANA LESLIE [facility] [address] [place] [phone] 12/12/2023 ANA LESLIE [facility] [address] [place] [phone] 01/09/2024 ANA NELSON Essential (primary) hypertension I10 ; Other fatigue R53.83 ; Hyperlipidemia, unspecified E78.5 ; Vitamin B deficiency, unspecified E53.9 and Impaired fasting glucose R73.01 [facility] [address] [place] [phone] 02/01/2024 ANA GUAMANIA [facility] [address] [place] [phone] 03/05/2024 ANA LESLIE [facility] [address] [place] [phone] 04/16/2024 ANA GUAMANIA [facility] [address] [place] [phone] 04/30/2024 ANA LESLIE [facility] [address] [place] [phone] 07/03/2024 ANA GUAMANIA [facility] [address] [place] [phone] 07/29/2024 ANA LESLIE [facility] [address] [place] [phone] 08/11/2024 ANA LESLIE [facility] [address] [place] [phone] 08/18/2024 ANA GUAMANIA [facility] [address] [place] [phone] 09/29/2024 ANA LESLIE [facility] [address] [place] [phone] 09/30/2024 ANA NELSON Assessments Encounter Date Diagnosis (ICD Code) Assessment Notes Treatment Notes Treatment Clinical Notes Section Notes 07/29/2024 Essential (primary) hypertension (ICD-10 - I10) dose changed by nephrology Patient's blood pressures are well controlled. Recommend continue with same medication(s). 07/29/2024 Chronic kidney disease, stage 3 unspecified (ICD-10 - N18.30) labs reviewed with patient new labs will be ordered to monitor progress with lifestyle modifications and patient to see nephrology next week as well 01/15/2024 Encounter for general adult medical examination without abnormal findings (ICD-10 - Z00.00) General health maintenance reviewed refuses vaccines at this point 01/15/2024 Chronic kidney disease, stage 3a (ICD-10 - N18.31) EGFR 55 he will f/u with nephrology as well 01/09/2024 Essential (primary) hypertension (ICD-10 - I10) 01/15/2024 Encounter for screening examination for other mental health and behavioral disorders (ICD-10 - Z13.39) 01/09/2024 Other fatigue (ICD-10 - R53.83) 07/29/2024 Hyperlipidemia, unspecified (ICD-10 - E78.5) low fat/cholesterol diet discussed with patient, along with jail risks of elevated cholesterol. Patient will continue current treatment and life style changes and repeat labs labs reviewed with patient new labs will be ordered to monitor progress with lifestyle modifications 07/29/2024 Other fatigue (ICD-10 - R53.83) 01/15/2024 Essential (primary) hypertension (ICD-10 - I10) Patient's blood pressures are well controlled. Recommend continue with same medication(s). 01/09/2024 Hyperlipidemia, unspecified (ICD-10 - E78.5) 01/15/2024 Hyperlipidemia, unspecified (ICD-10 - E78.5) Patient's lipids have been stable. Recommend to continue with present medication(s). labs reviewed with patient new labs will be ordered to monitor progress with lifestyle modifications 01/09/2024 Vitamin B deficiency, unspecified (ICD-10 - E53.9) 07/29/2024 Impaired fasting glucose (ICD-10 - R73.01) Blood sugar control emphasized educated on proper diabetic diet, the need for exercise, educated on the importance of good A1c control and routine testing, educated on the need for routine foot exams and eye exams labs reviewed with patient new labs will be ordered to monitor progress with lifestyle modifications 01/09/2024 Impaired fasting glucose (ICD-10 - R73.01) 07/29/2024 Benign prostatic hyperplasia with lower urinary tract symptoms (ICD-10 - N40.1) 01/15/2024 Gastro-esophagea l reflux disease without esophagitis (ICD-10 - K21.9) stable 01/15/2024 Palpitations (ICD-10 - R00.2) resolved 01/15/2024 Impaired fasting glucose (ICD-10 - R73.01) labs reviewed with patient new labs will be ordered to monitor progress with lifestyle modifications Not At GOAL At This Time 01/15/2024 Encounter for screening for other viral diseases (ICD-10 - Z11.59) 07/29/2024 Other greater than 3 5 minutes spent in face to face discussion and counseling, coordination of care, documentation and review of data of above diagnosis, chart review, medication reconciliation, educated on diagnosis and possible treatment options, and further work up that may be done, the importance of follow up, and compliance. also educated on the risk of poor compliance, patient demonstrated understanding of above Plan Of Treatment Pending Test Test Name Order Date CT Scan : Abdomen and Pelvis with contra st 01/10/2016 X ray : Spines, cervical 01/31/2022 CT ABDOMEN W/O CONTRAST 01/18/2016 MRI : Brain without Contrast 07/15/2020 AST 07/19/2015 ALT 07/19/2015 VITAMIN B12 07/19/2015 FECAL GLOBIN BY IMMUNOCHEMISTRY 08/30/19 16 Future Test Test Name Order Date LYME DISEASE ANTIBODIES (IGG,IGM), IMMUN OBLOT 04/04/2023 LYME AB SCREEN 04/04/2023 HEPATITIS C AB W/REFL TO HCV RNA, QN, PC R 06/29/2024 Next Appt Details Provider Name:ANA NELSON, 01/27/2025 12:00:00 PM, [address], [address], [place], [address], Insurance Providers Payer Name Payer Address Payer Phone Subscriber Number Group Number Insured Name Patient Relationship to Insured Coverage Start Date Coverage End Date [employer]age [address] [place] [address] [id number] [place], Aneudy Self - patient is the insured 3 Medications Administered Medication Instructions Date of Administration Dosage Notes B12 04/09/2017 B12 05/09/2017 B12 02/25/2018 B12 03/26/2018 B12 05/13/2018 Medical (General) History Medical History History ICD Code chronic kidney disease gastritis migraine headaches hyperlipidemia cervical spondylosis anxiety depression Palpitations R00.2 Elevated prostate specific antigen [PSA] R97.2 Testicular hypofunction E29.1 Gastro-esophageal reflux disease without esophagitis K21.9 Essential (primary) hypertension I10 Chronic kidney disease, stage 3 (moderat e) N18.3 Hyperlipidemia, unspecified E78.5 Elevated prostate specific antigen [PSA] R97.2 SPECIALISTS: Cardiology Dr Barbi juan; Ortho Dr. Peoples; GI Dr. Donn Salmon; [facility] Surgical History Surgery Date(Month/Year) cataract surgery right eye left eye cataract extracion 07/2017 subtotal laparoscopic cholecystectomy an d umbilical hernia repair 07/31/2022 Hospitalization History Reason Date(Month/Year) Bilateral Cataract surgery 07/2017 acute Memory loss, hyperkalemia, hyperte nsive urgency 07/09/2020 Malaria - 3 weeks 1970
--- OUTSIDE RECORDS SUMMARY | 2024-10-29 14:02 | XMS_ITS | Clinical Summary ---
Author Organization [facility] Address [address] [facility] [address] [place] [address] Phone Care Team Providers Care Yard Caller Name Role Phone Unavailable Primary Care Provider [...] (06/29/2022): Added automatically from request for surgery [id number] Abnormal feces 08/10/2021 Aneurysm of aorta 08/10/2021 [...] (08/16/2021): Added automatically from request for surgery [id number] Chronic kidney disease stage 3 11/29/2020 Hypertensive renal disease 11/29/2020 Alcohol dependence 07/10/2020 Hyperkalemia 07/10/2020 Hypertensive urgency 07/10/2020 Temporary loss of memory 07/09/2020 Acute post-traumatic headache, not intractable 0 11/12/2019 Essential hypertension 10/31/2016 Obstructive sleep apnea syndrome 10/31/2016 Immunizations Immunization Administration Dates Next Due Influenza, Quadrivalent, Preservative [...] Due Date Last Done Comments Influenza Vaccine (Season Ended) 2025 04/18/2019, 03/26/2018, 04/09/2017 Pneumococcal Vaccine: 50+ Years Completed 05/13/2018, 05/13/2018, 05/09/2017, Additional history exists Pneumococcal Vaccine: Peds (0 to 5 Years) and At-Risk Patients (6 to 49 Years) Discontinued 05/13/2018, 05/13/2018, 05/09/2017, Additional history exists Colorectal Cancer Screening: Colonoscopy Discontinued 01/18/2022 Hepatitis B Vaccine Aged Out No longe r eligible based on patient's age to complete this topic Insurance [employer] M[employer] Adv PPO ([id number]) [employer] [facility] PPO ([id number])
--- OUTSIDE RECORDS SUMMARY | 2024-10-29 14:02 | XMS_ITS | Encounter Summary ---
Author Organization [facility], Address [address] [place] [address], [address] [place] [address] Phone Care Team Providers Care Child Protective Services Social Worker Name Role Phone Jr Joaquin Gallo DO Primary Care Provider [phone] Encounter Details Date Type Department Care Team (Late st Contact Info) Description 11/26/2017 Abstract [facility] [address] [place] [address] [address] [place] [address] [place] [address] [place] [address] [address] [place] [address] Social History Tobacco Use Types [...] documented as of this encounter Care Teams Child Protective Services Social Worker Relationship Specialty Start Date End Date Jr Joaquin Gallo DO [address] [facility] [address] [place] [address] PCP - General Internal Medicine 03/02/17 documented as of this encounter
--- OUTSIDE RECORDS SUMMARY | 2024-10-29 14:02 | XMS_ITS | Encounter Summary ---
Author Organization [facility] Address [address] [place] [address] Care Team Providers Care Fuel Quality Tech Name Role Phone Cleo Joaquin DO Primary Care Provider Giovani Su PA-C Unavailable Unavai lababraham Encounter Details Date Type Department Care Team (Late st Contact Info) Description 11/09/2022 Procedure Pass [facility] Radiology, [facility] ([place] Scan) [address] [place] [id number] Social History Tobacco Use Types Packs/Day Years [...] place to sleep or slept in a senior living (including now)? No 07/31/2022 Sex and Gender [...] on filedocumented in this encounter Care Teams Fuel Quality Tech Relationship Specialty Start Date End Date Joaquin Gallo DO [address] [place] [address] PCP - General Internal Medicine 07/30/22 Giovani Su PA-C [address] [place] [address] Physician Fur Grader General Surgery 08/08/22 documented as of this encounter
--- OUTSIDE RECORDS SUMMARY | 2024-10-29 14:02 | XMS_ITS | Encounter Summary ---
Author Organization [facility] Address [address] [place] [phone] Care Team Providers Care Shoe Repairman Name Role Phone Jr Joaquin Gallo DO Primary Care Provider [phone] Encounter Details Date Type Department Care Team (Late st Contact Info) Description 05/02/2023 Documentation [address] [facility] [address] [place], [place] [phone] Siomara Guy, TEACHING FELLOW [address] [facility] [address] [place] [address] Social History Tobacco Use Types [...] on filedocumented in this encounter Care Teams Shoe Repairman Relationship Specialty Start Date End Date Jr Joaquin Gallo DO [address] [place] [address] PCP - General Internal Medicine 03/02/17 documented as of this encounter
--- OUTSIDE RECORDS SUMMARY | 2024-10-29 14:02 | XMS_ITS | Encounter Summary ---
Author Organization [facility] Address [address] [place] [address] Care Team Providers Care Laboratory Secretary Name Role Phone Joaquin Gallo DO Primary Care Provider [phone] Encounter Details Date Type Department Care Team (Late st Contact Info) Description 10/01/2024 Scanned Document [facility] SCAN CARDIOLOGY Cardiology, Scan Social History Tobacco [...] Info) Description 10/31/2024 4:00 PM EDT Consult [facility] Cardiology [address] [place], [place] [phone] Joaquin Gallo DO [address] [address] Brown Maher MD [address] [place] [phone] documented as of this encounter Visit Diagnoses Not on filedocumented in this encounter Care Teams Laboratory Secretary Relationship Specialty Start Date End Date Joaquin Gallo DO [address] [place] [address] PCP - General Internal Medicine 01/14/24 documented as of this encounter
--- OUTSIDE RECORDS SUMMARY | 2024-10-29 14:02 | XMS_ITS | Encounter Summary ---
Author Organization [facility] Address [address] [place], [place] [phone] Care Team Providers Care Pen Maker Name Role Phone Cleo Joaquin Primary Care Provider Giovani Su PA-C Unavailable Unavai lababraham Encounter Details Date Type Department Care Team (Late st Contact Info) Description 07/31/2022 Procedure Pass [facility], Main Operating Room [address] [place] [id number] Social History Tobacco Use Types Packs/Day Years [...] documented as of this encounter Care Teams Pen Maker Relationship Specialty Start Date End Date Joaquin Gallo DO [address] [place] [phone] PCP - General Internal Medicine 07/30/22 Giovani Su PA-C [address] [place] [address] Physician Video Rental Clerk General Surgery 08/08/22 documented as of this encounter
--- NOTE | 2024-10-29 14:06 | HO.NEPHOV ---
Vital Signs 10/29/24 14:07 Height 5 ft 8 in Weight 215 lb BMI 32.7 BP 130/86 Blood Pressure Location Rt brachial Position Sitting Pulse 85 Pulse Source Pulse Oximeter Pulse Oximetry (%) 97 Oxygen Delivery Method Room Air Intake Visit Reasons: 4mon follow-up w/labs Conf Firmware Engineer Required: No Accompanied by: Self / Same As Patient Allergies No Known Allergies Allergy (Verified 10/29/24 14:09) Medication List - Last Reconciled 10/29/24 by Amari Sargent MD amlodipine 5 mg PO DAILY ascorbic acid (vitamin C) 1 g PO DAILY aspirin (Adult Low Dose Aspirin) 81 mg PO DAILY atorvastatin 10 mg PO DAILY cholecalciferol (vitamin D3) 25 mcg PO DAILY escitalopram oxalate 20 mg PO DAILY lansoprazole 30 mg PO DAILY PRN losartan 25 mg PO DAILY metoprolol succinate ER 50 mg PO DAILY multivitamin 1 tab PO DAILY rosuvastatin 5 mg PO DAILY vitamin B complex 1 tab PO DAILY HPI Comments Details: Aneudy is a pleasant 68-year-old man with a history of longstanding hypertension and CKD. He is here for annual follow-up. No new complaints today. After lowering losartan, no further lightheadedness He has stopped drinking alcohol 2 weeks ago Used to drink 1-2 bottles of wine a day 10/29/24 74-year-old male presenting with recurrent bronchitis and associated symptoms. He experienced bronchitis episodes 10 months ago and again approximately two weeks ago, for which he was prescribed steroids and cough inhibitors. Despite this, he continues to experience fatigue and shortness of breath. His condition was further aggravated by a recent trip to [place], involving extensive travel demands. Previously, he was evaluated by urgent care with recommendations for an x-ray and echocardiogram, which he has yet to undergo. His past medical consultation with a surface plate finisher included multiple CAT scans due to a lung nodule. A coincidental prescription for an additional CAT scan raised questions about unnecessary radiation exposure. The patient is also diagnosed with an aortic aneurysm, Waiting to see cardiology in 2 days There have been no recent adjustments in his medication regimen. [facility] Surgical History Hx of cholecystectomy Family History Mother Hypertension Kidney disease Social History Alcohol intake: current Patient Tobacco Use Status: Former Tobacco user Physical Exam Vital Signs: Last Vital Signs Pulse 85 10/29/24 14:07 BP 130/86 10/29/24 14:07 Pulse Ox 97 10/29/24 14:07 Oxygen Delivery Method Room Air 10/29/24 14:07 BMI result Body Mass Index 32.7 Comfortable Neck supple no JVD. Lungs entry equal no rales. Heart S1-S2 heard no gallop or rub. Abdomen soft nontender. Neuro alert awake oriented. No asterixis. Extremities no edema. Results Reviewed Results Reviewed: 09/05/2023 creatinine 1.26 01/05/2024 creatinine 1.39. September 2024 Cr 1.4 Nephrology Results: No Data to Display Assessment & Plan Assessment & Plan (1) HTN (hypertension): Code(s): I10 - Essential (primary) hypertension Category: Medical (2) CKD (chronic kidney disease): Code(s): N18.9 - Chronic kidney disease, unspecified Category: Medical Plan 74-year-old man with CKD 3 in the setting of hypertension. BP is better controlled Cr is close to baseline Continue to maintain blood pressure less than 130/80 and avoid hypotension. Await cardiac evaluation for dyspnea and encouraged to follow up with PCP as well. Orders: Orders Basic Metabolic Panel 4 Months I10 - Essential (primary) hypertension, N18.9 - Chronic kidney disease, unspecified Complete Blood Count no Diff 4 Months I10 - Essential (primary) hypertension, N18.9 - Chronic kidney disease, unspecified Coding Level of Care Code Est Pt Level 4 (72278) Diagnoses HTN (hypertension) I10 CKD (chronic kidney disease) N18.9
[2024-10-29 14:07] VITALS: BP 130/86; PULSE 85; O2SAT 97; BMI 32.7
== END 2024-10-29 14:25 | disposition home or self-care (01) ==
LOC: HO.HKAE 13:58
PROVIDERS: Visit Provider Internal Medicine Hypertension Specialist
DX: I12.9 Hypertensive chronic kidney disease with stage 1 through stage 4 chronic kidney disease, or unspecified chronic kidney disease (principal); N18.9 Chronic kidney disease, unspecified
CPT/HCPCS: 99214

== ENCOUNTER → 2024-10-29 13:57 | Outpatient (BNVA) | payer MEDICARE, SELFPAY | PROVIDERS: Visit Provider Internal Medicine Hypertension Specialist | DX: I12.9 Hypertensive chronic kidney disease with stage 1 through stage 4 chronic kidney disease, or unspecified chronic kidney disease (principal); N18.9 Chronic kidney disease, unspecified | CPT/HCPCS: 99212 ==

== ENCOUNTER 2025-03-25 15:44 | Outpatient (AMB) | payer MEDICARE, SELFPAY ==
--- NOTE | 2025-03-25 15:39 | HO.NEPHOV_ITS ---
Vital Signs 03/25/25 15:40 Height 5 ft 8 in BP 122/78 Blood Pressure Location Rt brachial Position Sitting Pulse 69 Pulse Source Pulse Oximeter Pulse Oximetry (%) 95 Oxygen Delivery Method Room Air Intake Visit Reasons: 4mon follow-up w/labs- LV Block Cleaner Required: No Accompanied by: Self / Same As Patient Allergies No Known Allergies Allergy (Verified 03/25/25 15:41) Medication List - Last Reconciled 03/25/25 by Amari Sargent MD amlodipine 5 mg PO DAILY ascorbic acid (vitamin C) 1 g PO DAILY aspirin (Adult Low Dose Aspirin) 81 mg PO DAILY atorvastatin 10 mg PO DAILY cholecalciferol (vitamin D3) 25 mcg PO DAILY escitalopram oxalate 20 mg PO DAILY lansoprazole 30 mg PO DAILY PRN losartan 25 mg PO DAILY metoprolol succinate ER 50 mg PO DAILY multivitamin 1 tab PO DAILY rosuvastatin 5 mg PO DAILY vitamin B complex 1 tab PO DAILY HPI Comments Details: Aneudy is a pleasant 68-year-old man with a history of longstanding hypertension and CKD. He is here for annual follow-up. No new complaints today. After lowering losartan, no further lightheadedness He has stopped drinking alcohol 2 weeks ago Used to drink 1-2 bottles of wine a day 10/29/24 74-year-old male presenting with recurrent bronchitis and associated symptoms. He experienced bronchitis episodes 10 months ago and again approximately two weeks ago, for which he was prescribed steroids and cough inhibitors. Despite this, he continues to experience fatigue and shortness of breath. His condition was further aggravated by a recent trip to [place], involving extensive travel demands. Previously, he was evaluated by urgent care with recommendations for an x-ray and echocardiogram, which he has yet to undergo. His past medical consultation with a reconciliation coordinator included multiple CAT scans due to a lung nodule. A coincidental prescription for an additional CAT scan raised questions about unnecessary radiation exposure. The patient is also diagnosed with an aortic aneurysm, Waiting to see cardiology in 2 days There have been no recent adjustments in his medication regimen. 03/25/25 - The patient is a 75-year-old male presenting with chronic kidney disease and hypertension. - Alcohol use disorder: Ceased alcohol intake five months ago, improving blood pressure and kidney function. - Hypertension: Well-controlled, advised regular monitoring. - Chronic kidney disease: Improved function noted, linked to alcohol cessation. - Fatigue: Linked to Lexapro, patient is tapering off. - Abdominal aortic aneurysm: Declined stress test due to procedural concerns. PFSH Surgical History Hx of cholecystectomy Family History Mother Hypertension Kidney disease Social History Alcohol intake: current Patient Tobacco Use Status: Former Tobacco user Physical Exam Comfortable Neck supple no JVD. Lungs entry equal no rales. Heart S1-S2 heard no gallop or rub. Abdomen soft nontender. Neuro alert awake oriented. No asterixis. Extremities no edema. Results Reviewed Results Reviewed: 09/05/2023 creatinine 1.26 01/05/2024 creatinine 1.39. September 2024 Cr 1.4 03/23/25 BUN 16 Cr 1.28 Assessment & Plan Assessment & Plan (1) HTN (hypertension): Code(s): I10 - Essential (primary) hypertension Category: Medical (2) CKD (chronic kidney disease): Code(s): N18.9 - Chronic kidney disease, unspecified Category: Medical Plan 75-year-old man with CKD 3 in the setting of hypertension. BP is better controlled Cr is close to baseline at 1.2 Continue to maintain blood pressure less than 130/80 and avoid hypotension. Continuing to lose weight blood pressure med decrease further. I encouraged him to discontinue losartan if he feels lightheaded or if systolic blood pressure is less than 100 mm Hg. He will monitor his blood pressure at home or [facility] at least once a week. Orders: Orders Basic Metabolic Panel 6 Months N18.9 - Chronic kidney disease, unspecified Coding Level of Care Code Est Pt Level 4 (78498) Diagnoses HTN (hypertension) I10 CKD (chronic kidney disease) N18.9
[2025-03-25 15:40] VITALS: BP 122/78; PULSE 69; O2SAT 95
== END 2025-03-25 16:01 | disposition home or self-care (01) ==
LOC: HO.HKAE 15:45
PROVIDERS: Visit Provider Internal Medicine Hypertension Specialist
DX: I12.9 Hypertensive chronic kidney disease with stage 1 through stage 4 chronic kidney disease, or unspecified chronic kidney disease (principal); N18.9 Chronic kidney disease, unspecified
CPT/HCPCS: 99214

== ENCOUNTER → 2025-03-25 15:44 | Outpatient (BNVA) | payer MEDICARE, SELFPAY | PROVIDERS: Visit Provider Internal Medicine Hypertension Specialist | DX: I10 Essential (primary) hypertension (principal); N18.9 Chronic kidney disease, unspecified | CPT/HCPCS: 99212 ==